=== PATIENT | male | born 1935 | race Caucasian/White ===

== ENCOUNTER 2016-06-06 07:35 | Inpatient (IN) | payer MEDICARE ==
[~2016-06-06] VITALS: Ht 175.3 cm; Wt 78.7 kg
[2016-06-06] VITALS (11 sets, daily range): BP systolic 111–161; BP diastolic 60–97; PULSE 61–89; RESP 18; TEMP 97.3–98.6; O2SAT 93–97
[2016-06-06] MEDS ORDERED: METF1000 PO (08:26)
[2016-06-06] MEDS ORDERED: FISH1000 PO (08:26)
[2016-06-06] MEDS ORDERED: PIOG15TA5 PO (08:26)
[2016-06-06] MEDS ORDERED: LISI40TA PO (08:26)
[2016-06-06] MEDS ORDERED: GLUC1CAP16 PO (08:26)
[2016-06-06] MEDS ORDERED: POTA595T PO (08:26)
[2016-06-06] MEDS ORDERED: PRAV40TA2 PO (08:26)
[2016-06-06] MEDS ORDERED: TAMS0.4C4 PO (08:26)
[2016-06-06] MEDS ORDERED: AMLO10TA2 PO (08:26)
[2016-06-06] MEDS ORDERED: VITA400C5 PO (08:26)
[2016-06-06] MEDS ORDERED: VITA100C6 CHEW (08:26)
[2016-06-06] MEDS ORDERED: VITATAB11 PO (08:26)
[2016-06-06] MEDS ORDERED: HEPARIN-NS/PF INJ 500 ML ONE (09:56)
[2016-06-06] MEDS ORDERED: MIDAZOLAM HCL 2 MG/2 ML VIAL ONE ×2 (09:57→10:44)
[2016-06-06] MEDS ORDERED: HEPARIN SODIUM - IV 10,000 UNITS/10 ML VIAL ONE (10:37)
[2016-06-06] MEDS ORDERED: PHENYLEPH/NS 1000 MCG/10 ML SYR ONE (10:41)
[2016-06-06] MEDS ORDERED: IOHEXOL 350 MG/ML 100 ML BTL (for Cath Lab) OTHER ONE (11:25)
[2016-06-06] MEDS ORDERED: METOCLOPRAMIDE HCL 10 MG/2 ML VIAL IV PRN (11:45)
[2016-06-06] MEDS ORDERED: ATROPINE SULFATE 1 MG/ML VIAL IV PRN (11:45)
[2016-06-06] MEDS ORDERED: oxyCODONE/ACETAMINOPHEN 10 MG/325 MG TAB PO PRN (11:45)
[2016-06-06] MEDS ORDERED: LIDOCAINE HCL 1% 50 ML VIAL INFIL PRN (11:45)
[2016-06-06] MEDS ORDERED: LORazepam 2 MG/ML VIAL IV PRN (11:45)
[2016-06-06] MEDS ORDERED: MORPHINE SULFATE 4 MG/ML INJ IV PUSH PRN (11:45)
[2016-06-06] MEDS ORDERED: oxyCODONE/ACETAMINOPHEN 5 MG/325 MG TAB PO PRN (11:45)
[2016-06-06] MEDS ORDERED: BACITRACIN OINT 0.9 GM PKT TOP ONE (11:45)
[2016-06-06] MEDS ORDERED: ONDANSETRON HCL 4 MG/2 ML VIAL IV PRN (11:45)
[2016-06-06] MEDS ORDERED: SODIUM CHLOR 0.9% 250 ML INJ 250 ML IV PRN (11:45)
--- NOTE | 2016-06-06 12:32 | MA ---
cc: CHRYSTAL LARSON DATE: 06/06/2016 INDICATION Abnormal stress test. PROCEDURE PERFORMED 1. Fluoroscopy with interpretation. 2. Coronary angiography. 3. Unsuccessful attempt at percutaneous intervention of the mid left anterior descending coronary artery. METHOD The risks, benefits and alternatives were discussed with the patient. The patient understood and consented to the procedure. The patient was brought into the catheterization lab and placed on the catheterization table. The right groin was prepped and draped in sterile fashion. The right groin was anesthetized with 2% lidocaine. The right common femoral artery is cannulated and a 5-Maltese, 11 cm sheath was placed without difficulty. CORONARY ANGIOGRAPHY The left coronary circulation was selectively engaged with a 5-Maltese JL4 catheter. The right coronary circulation was selectively engaged with a 5-Maltese JR4 catheter. Angiography findings were as follows: 1. The left main coronary has 40% eccentric calcific stenosis in the mid to distal segment. 2. The left anterior descending coronary artery is heavily calcified in the proximal segment and quite tortuous. There is a large diagonal branch with a 50% ostial stenosis. The mid left anterior descending coronary has a 99% heavily calcified and tortuous stenosis with KOKI-II flow distally, although the distal vessel has only minor luminal irregularities. 3. The left circumflex is occluded but does give rise to a high obtuse marginal branch prior to the occlusion. It is heavily calcified through its entire course. The obtuse marginal branch has minor luminal irregularities. 4. The right coronary artery is also moderately calcified but only has minor luminal irregularities. PERCUTANEOUS INTERVENTION The left coronary circulation was selectively engaged with a 6-Maltese AL-2 guide catheter. A 0.014, 300 cm Terumo Runthrough wire is then navigated to the midsegment at the bifurcation of a septal branch. There is a large eccentric calcific lesion just prior to the bifurcation of a large septal knitting teacher and there is a steep angulation just after which leads to the subtotal occlusion. We had difficulty trying to navigate the tortuosity and calcification and was unable to cross the SCARRER. We used a Terumo Runthrough wire in addition to a [employer] Fighter wire with a tapered tip. We also used an Venture catheter in attempts to redirect the wire due to the steep angulation. Due to risk of complication we elected not to proceed with any further aggressive attempts for intervention. Heparin was administered throughout the entire procedure to maintain appropriate anticoagulation. CONCLUSIONS 1. Heavily calcified subtotally occluded mid left anterior descending coronary artery with KOKI-II flow. 2. Moderate ostial diagonal branch disease. PLAN Unfortunately, the patient is going to need a surgical revascularization of the LAD and probably the diagonal territories. Will get a 2-D echocardiogram and consult cardiothoracic surgery. Due to the KOKI-II flow, will initiate a heparin drip. He will probably have to stay admitted until the surgery. MD ALICIA Ku/JOANNA /11:43 AM /12:14 PM MTDD
[2016-06-06] MEDS ORDERED: GLUCAGON 1 MG/ML VIAL OTHER PRN (13:30)
[2016-06-06] MEDS ORDERED: INSULIN REGULAR (IV INFUSION) 100 UNITS in SODIUM CHLORIDE 0.9% INJ 100 ML IV SCH (13:30)
[2016-06-06] MEDS ORDERED: CEFAZOLIN INJ 500 MG in SODIUM CHLORIDE 0.9% IRR BTL 500 ML IRRIGATION SCH (13:30)
[2016-06-06] MEDS ORDERED: CHLORHEXIDINE GLUCONATE 4% SOLN 120 ML BTL TOPICAL SCH (13:30)
[2016-06-06] MEDS ORDERED: PAPAVERINE INJ 60 MG, NITROGLYCERIN INJ 100 MCG, DILTIAZEM INJ 100 MG in SODIUM CHLORID... IRRIGATION SCH (13:30)
[2016-06-06] MEDS ORDERED: SODIUM CHLORIDE 0.9% FLUSH 5 ML FLUSH IV FLUSH PRN (13:30)
[2016-06-06] MEDS ORDERED: METOPROLOL TARTRATE 25 MG TAB PO SCH (13:30)
[2016-06-06] MEDS ORDERED: DEXTROSE 50% IN WATER 50 ML VIAL(D50) IV PUSH PRN (13:30)
[2016-06-06] MEDS ORDERED: ceFAZolin 2 GM PREMIX 50 ML IV SCH (13:30)
[2016-06-06] MEDS ORDERED: ACETAMINOPHEN 325 MG TAB PO PRN (13:45)
[2016-06-06] MEDS ORDERED: PILL SPLITTER OTHER PRN (13:45)
[2016-06-06] MEDS ORDERED: MAGNESIUM HYDROXIDE SUSP 30 ML CUP PO PRN (13:45)
[2016-06-06] MEDS: INSULIN NovoLIN REGULAR SUPPLEMENTAL SCALE SQ SCH ×2 (16:00→20:57)
--- NOTE | 2016-06-06 16:03 | RADRPT ---
EXAM DATE/TIME: 06/06/2016 14:13 [facility] COMPARISON: No previous studies available for comparison. INDICATIONS : Preop CABG. MEDICAL HISTORY : CAD. Hyperlipidemia. HTN. Diabetic. BPH. SURGICAL HISTORY : Appendectomy. ENCOUNTER: Initial ACUITY: 1 day PAIN SCORE: 0/10 LOCATION: Bilateral neck PEAK SYSTOLIC VELOCITIES (cm/sec): ICA/CCA RATIO: Right: 1.1 Left: 1.0 ICA: Right: 74 Left: 79 CCA: Right: 69 Left: 78 ECA: Right: 62 Left: 75 VERTEBRAL: Right: 38 antegrade Left: 59 antegrade Elevated flow velocities and ICA/CCA ratios have been found to correlate with increased degrees of vessel stenosis, calculated as percentage of diameter relative to a normal segment of distal ICA/CCA FINDINGS: RIGHT CAROTID: No significant stenosis is visualized. The waveforms are within normal limits. LEFT CAROTID: No significant stenosis is visualized. The waveforms are within normal limits. VERTEBRAL ARTERIES: Antegrade flow is seen in both vertebral arteries. MISCELLANEOUS: None. CONCLUSION: 1. There is [id number]-[id number] atherosclerotic disease in the carotid arteries bilaterally, predominant ly around the carotid bifurcations. No hemodynamically significant stenosis. Vertebral artery flow an tegrade bilaterally. Sonu Renteria MD on June 06, 2016 at 15:59 Board Certified Radiologist. This report was verified electronically.
--- NOTE | 2016-06-06 16:05 | RADRPT ---
EXAM DATE/TIME: 06/06/2016 14:32 [facility] COMPARISON: No previous studies available for comparison. INDICATIONS : Preop CABG. MEDICAL HISTORY : Hypertension. Hyperlipidemia. Diabetic. CAD. SURGICAL HISTORY : Appendectomy. ENCOUNTER: Initial ACUITY: 1 day PAIN SCORE: 0/10 LOCATION: Bilateral leg. TECHNIQUE: Venous ultrasound of the left and right leg was performed from the inguinal ligament to the proximal calf. Real-time, color Doppler and spectral tracing, compression and augmentation techniques were us ed. FINDINGS: RIGHT LEG: There is normal compressibility of the deep venous system from the inguinal region to the proximal ca lf. No echogenic clot is seen in the lumen of the common femoral, femoral, popliteal, and posterior tibial veins. There is a normal response of the venous system to proximal and distal augmentation an d respiration. LEFT LEG: There is normal compressibility of the deep venous system from the inguinal region to the popliteal r egion. There is occlusive thrombus in the left posterior tibial vein. CONCLUSION: Positive for occlusive thrombus within the left posterior tibial vein. Negative right lower extremity DVT study. Sonu Renteria MD on June 06, 2016 at 16:02 Board Certified Radiologist. This report was verified electronically.
--- NOTE | 2016-06-06 16:08 | RADRPT ---
EXAM DATE/TIME: 06/06/2016 14:47 [facility] COMPARISON: No previous studies available for comparison. INDICATIONS : Preop CABG. MEDICAL HISTORY : Diabetic. Hypertension. Hyperlipidemia. CAD. SURGICAL HISTORY : Appendectomy. ENCOUNTER: Initial ACUITY: 1 day PAIN SCORE: 0/10 LOCATION: Bilateral leg. GREATER SAPHENOUS VEIN THIGH: PROXIMAL: Right 3 mm Left 3 mm MID: Right 3 mm Left 2 mm DISTAL: Right 2 mm Left 3 mm CALF: PROXIMAL: Right 2 mm Left 2 mm MID: Right 2 mm Left 2 mm DISTAL: Right 2 mm Left 2 mm FINDINGS: The venous system of the lower extremities are patent by color Doppler imaging. Measurements of the leg veins (in mm) are listed above. CONCLUSION: Normal examination for a patient of this age. Sonu Renteria MD on June 06, 2016 at 16:04 Board Certified Radiologist. This report was verified electronically.
--- NOTE | 2016-06-06 16:42 | PD.CARD.PN ---
Assessment and Plan Assessment and Plan echo results from outpatient 06/04/16 Mildly dilated left ventricle. Wall thickness is measured at the upper limits of normal. The left ventricular systolic function is low normal with an estimated ejection fraction in the range of 50%. Cannot rule out regional wall abnormalities. Doppler parameters are consistent with impaired left ventricular relaxtion (grade 1 diastolic dysfunction). The left atrial size is mildly dilated. Mitral annular calcification is present. Latmq-ex-qzlv mitral valve regurgitation. Diffuse calcification of the aortic valve. Trace aortic valve regurgitation. There is mild tricuspid valve regurgitation. The estimated pulmonary arterial pressure is 37.5 mmHg. Normal estimated pulmonary pressures. Jn Griffith MD Jun 06, 2016 16:42
[2016-06-06 17:25] LABS: HEMATOCRIT 35.3 % (39.0-51.0); MEAN CORPUSCULAR HEMOGLOBIN 29.3 PG (27.0-34.0); MEAN CORPUSCULAR HGB CONC 33.7 % (32.0-36.0); PLATELET COUNT 219 TH/MM3 (150-450); RED BLOOD COUNT 4.06 MIL/MM3 (4.50-5.90); REVIEW FLAG FINAL; WHITE BLOOD COUNT 4.5 TH/MM3 (4.0-11.0)
[2016-06-06 17:35] LABS: APTT (PATIENT) 27.3 SEC (24.3-30.1); PROTHROMBIN TIME - PATIENT 11.1 SEC (9.8-11.6)
[2016-06-06] MEDS: HEPARIN-D5W INJ 250 ML IV SCH (18:25)
[2016-06-06] MEDS: METOPROLOL TARTRATE 25 MG TAB PO SCH (20:56)
[2016-06-06] MEDS: DOCUSATE SODIUM 100 MG CAP PO SCH (20:56)
[2016-06-06] MEDS: TAMSULOSIN HCL 0.4 MG CAP PO SCH (20:57)
[2016-06-06] MEDS: SODIUM CHLORIDE 0.9% FLUSH 5 ML FLUSH IV FLUSH SCH (20:57)
--- NOTE | 2016-06-06 22:31 | EKG ---
Date Performed: 06/06/2016 Time Performed: 08:21:30 PTAGE: 81 years EKG: Sinus rhythm T wave changes, possible ischemia Poor R wave Progression Abnormal ECG NO PREVIOUS TRACING DOCTOR: Myron Baeza Interpretating Date/Time 06/06/2016 22:30:23
[2016-06-06 22:33] LABS: BLOOD, URINE NEG (NEG); COMMENT (UR) CULT NOT INDICATED; CULTURE IF INDICATED CULT NOT INDICATED; GLUCOSE,URINE NEG (NEG); KETONE, URINE NEG (NEG); MUCUS URINE FEW /lpf (OCC); NITRITE,URINE NEG (NEG); URINE COLOR LIGHT-YELLOW (YELLW/STRAW)
[2016-06-07] VITALS (27 sets, daily range): BP systolic 114–138; BP diastolic 66–75; PULSE 50–80; RESP 18–20; TEMP 97.9–98.5; O2SAT 94–100
[2016-06-07 01:05] LABS: APTT (PATIENT) 30.4 SEC (24.3-30.1)
[2016-06-07 05:30] LABS: AUTOMATED NEUTROPHIL # 3.8 TH/MM3 (1.8-7.7); BASOPHIL % 0.6 % (0.0-2.0); EOSINOPHIL # 0.1 TH/MM3 (0-0.4); EOSINOPHIL % 2.4 % (0.0-4.0); HEMATOCRIT 33.9 % (39.0-51.0); HEMO FLAGS DIFF FINAL; MEAN CELL VOLUME 87.5 FL (80.0-100.0); MEAN CORPUSCULAR HGB CONC 34.2 % (32.0-36.0); MONO % 11.6 % (0.0-8.0); NEUT % 67.4 % (16.0-70.0); PLATELET COUNT 218 TH/MM3 (150-450); RED BLOOD COUNT 3.87 MIL/MM3 (4.50-5.90); RED CELL DISTRIBUTION WIDTH 14.2 % (11.6-17.2); WHITE BLOOD COUNT 5.7 TH/MM3 (4.0-11.0)
[2016-06-07 05:52] LABS: ALKALINE PHOSPHATASE 72 U/L (45-117); ALT (GPT) 20 U/L (12-78); ANION GAP 7 MEQ/L (5-15); AST (GOT) 11 U/L (15-37); BICARBONATE 28.9 MEQ/L (21.0-32.0); BLOOD UREA NITROGEN 13 MG/DL (7-18); CHLORIDE 109 MEQ/L (98-107); GLOMERULAR FILTRATION RATE 106 ML/MIN (>89); HDL CHOLESTEROL 66.1 MG/DL (40.0-60.0); LDL CHOLESTEROL 75 MG/DL (0-99); POTASSIUM 3.6 MEQ/L (3.5-5.1); SODIUM (NA) 145 MEQ/L (136-145); TOTAL BILIRUBIN ADULT 0.5 MG/DL (0.2-1.0)
[2016-06-07 05:55] LABS: CREATINE KINASE 75 U/L (39-308)
[2016-06-07] MEDS: INSULIN NovoLIN REGULAR SUPPLEMENTAL SCALE SQ SCH ×4 (06:27→20:17)
[2016-06-07 08:42] LABS: APTT (PATIENT) 43.4 SEC (24.3-30.1)
--- NOTE | 2016-06-07 08:51 | PD.CARD.PN ---
Subjective Subjective Remarks The chart was reviewed. The patient denies chest pain, shortness of breath, palpitations or GI symptoms. Telemetry reveals sinus rhythm/sinus bradycardia. Objective Medications Reviewed Vital Signs / I&O Vital Signs Date Time Temp Pulse Resp B/P Pulse Ox O2 Delivery O2 Flow Rate FiO2 06/07/16 07:53 98.5 65 18 138/75 95 06/07/16 07:53 Room Air 06/07/16 06:00 61 06/07/16 05:00 63 06/07/16 05:00 60 06/07/16 04:00 98.4 61 18 128/74 96 06/07/16 04:00 Room Air 06/07/16 04:00 61 06/07/16 03:00 65 06/07/16 02:00 63 06/07/16 01:00 62 06/07/16 00:00 71 06/06/16 23:51 98.2 71 18 111/60 95 06/06/16 23:51 Room Air 06/06/16 23:00 81 06/06/16 22:00 81 06/06/16 21:00 73 06/06/16 20:00 98.0 74 18 156/97 97 06/06/16 20:00 Room Air 06/06/16 20:00 74 06/06/16 18:00 73 06/06/16 17:00 89 06/06/16 16:00 65 06/06/16 15:00 97.3 64 18 125/74 06/06/16 15:00 63 06/06/16 14:15 61 06/06/16 11:30 96 Room Air I/O 06/06/16 06/06/16 06/06/16 06/07/16 06/07/16 06/07/16 07:00 15:00 23:00 07:00 15:00 23:00 Intake Total 210 ml 350 ml Output Total 400 ml 800 ml Balance -190 ml -450 ml Intake Oral 210 ml 240 ml IV Total 110 ml Output Urine Total 400 ml 800 ml # Bowel Movements 1 Physical Exam GENERAL: Well-nourished, well-developed patient in no apparent distress. SKIN: Warm and dry. NECK: JVD normal - less than or equal to 5 cm H20. CARDIOVASCULAR: Regular rate and rhythm without gallops, or rubs. 2/6 early peaking systolic ejection murmur at the base and apex. RESPIRATORY: Normal breath sounds - equal bilaterally. No accessory muscle use. No wheezes, rales or rubs. PERIPHERY: No cyanosis, or edema. Right groin dry and without hematoma. Laboratory Laboratory Tests Test 06/06/16 06/06/16 06/06/16 06/07/16 17:13 18:45 22:01 00:36 White Blood Count 4.5 TH/MM3 Red Blood Count 4.06 MIL/MM3 Hemoglobin 11.9 GM/DL Hematocrit 35.3 % Mean Corpuscular Volume 87.0 FL Mean Corpuscular Hemoglobin 29.3 PG Mean Corpuscular Hemoglobin 33.7 % Concent Red Cell Distribution Width 14.0 % Platelet Count 219 TH/MM3 Mean Platelet Volume 7.3 FL Prothrombin Time 11.1 SEC Prothromb Time International 1.0 RATIO Ratio Activated Partial 27.3 SEC 30.4 SEC Thromboplast Time Nasal Screen MRSA (PCR) NEGATIVE Urine Color LIGHT-YELLOW Urine Turbidity CLEAR Urine pH 7.0 Urine Specific [place] 1.014 Urine Protein NEG mg/dL Urine Glucose (UA) NEG mg/dL Urine Ketones NEG mg/dL Urine Occult Blood NEG Urine Nitrite NEG Urine Bilirubin NEG Urine Urobilinogen LESS THAN 2.0 MG/DL Urine Leukocyte Esterase NEG Urine Mucus FEW /lpf Microscopic Urinalysis Comment CULT NOT INDICATED Test 06/07/16 05:02 White Blood Count 5.7 TH/MM3 Red Blood Count 3.87 MIL/MM3 Hemoglobin 11.6 GM/DL Hematocrit 33.9 % Mean Corpuscular Volume 87.5 FL Mean Corpuscular Hemoglobin 30.0 PG Mean Corpuscular Hemoglobin 34.2 % Concent Red Cell Distribution Width 14.2 % Platelet Count 218 TH/MM3 Mean Platelet Volume 7.5 FL Neutrophils (%) (Auto) 67.4 % Lymphocytes (%) (Auto) 18.0 % Monocytes (%) (Auto) 11.6 % Eosinophils (%) (Auto) 2.4 % Basophils (%) (Auto) 0.6 % Neutrophils # (Auto) 3.8 TH/MM3 Lymphocytes # (Auto) 1.0 TH/MM3 Monocytes # (Auto) 0.7 TH/MM3 Eosinophils # (Auto) 0.1 TH/MM3 Basophils # (Auto) 0.0 TH/MM3 CBC Comment DIFF FINAL Differential Comment Sodium Level 145 MEQ/L Potassium Level 3.6 MEQ/L Chloride Level 109 MEQ/L Carbon Dioxide Level 28.9 MEQ/L Anion Gap 7 MEQ/L Blood Urea Nitrogen 13 MG/DL Creatinine 0.71 MG/DL Estimat Glomerular Filtration 106 ML/MIN Rate Random Glucose 92 MG/DL Calcium Level 8.2 MG/DL Total Bilirubin 0.5 MG/DL Aspartate Amino Transf 11 U/L (AST/SGOT) Alanine Aminotransferase 20 U/L (ALT/SGPT) Alkaline Phosphatase 72 U/L Total Creatine Kinase 75 U/L Total Protein 6.0 GM/DL Albumin 3.3 GM/DL Triglycerides Level 50 MG/DL Cholesterol Level 151 MG/DL LDL Cholesterol 75 MG/DL HDL Cholesterol 66.1 MG/DL Cholesterol/HDL Ratio 2.28 RATIO Imaging Last 48 hours Impressions Lower Extremity Ultrasound 06/06/16 0000 Signed Impressions: Service Date/Time: Monday, June 06, 2016 14:47 - CONCLUSION: Normal examination for a patient of this age. Sonu Renteria MD Lower Extremity Ultrasound 06/06/16 0000 Signed Impressions: Service Date/Time: Monday, June 06, 2016 14:32 - CONCLUSION: Positive for occlusive thrombus within the left posterior tibial vein. Negative right lower extremity DVT study. Sonu Renteria MD Carotid Artery Ultrasound 06/06/16 0000 Signed Impressions: Service Date/Time: Monday, June 06, 2016 14:13 - CONCLUSION: 1. There is waph-th-vlbsodce atherosclerotic disease in the carotid arteries bilaterally, predominantly around the carotid bifurcations. No hemodynamically significant stenosis. Vertebral artery flow antegrade bilaterally. Sonu Renteria MD Assessment and Plan Assessment and Plan Problems: Coronary artery disease with unsuccessful PCI Hypertension Diabetes Hyperlipidemia Occlusive thrombus and distal vein Recommendations: Continue present medical regimen. I have spoken to Dr. Giraldo from cardiovascular surgery. He does not think anticoagulation is indicated. The surgeons will assume further management with help from the hospitalists if necessary. We will be available if needed. Red Steen MD Jun 07, 2016 08:51
[2016-06-07] MEDS ORDERED: LISINOPRIL 20 MG TAB PO SCH (09:00)
[2016-06-07] MEDS ORDERED: CHONDROITIN PO SCH (09:00)
[2016-06-07] MEDS ORDERED: GLUCOSAMINE PO SCH (09:00)
[2016-06-07] MEDS ORDERED: POTASSIUM GLUCONATE PO SCH (09:00)
[2016-06-07] MEDS ORDERED: NON-FORMULARY DRUG (Omega-3 Fatty Acids (Fish Oil) 1,000 MG) PO SCH (09:00)
[2016-06-07] MEDS ORDERED: ASCORBIC ACID 100 MG CHEW SCH (09:00)
[2016-06-07] MEDS ORDERED: [UNRECOGNIZED DRUG - OTHER] PO SCH (09:00)
[2016-06-07] MEDS: SODIUM CHLORIDE 0.9% FLUSH 5 ML FLUSH IV FLUSH SCH ×2 (09:00→20:07)
[2016-06-07] MEDS: ASPIRIN 81 MG CHEW TAB PO SCH (09:40)
[2016-06-07] MEDS: PRAVASTATIN SOD 40 MG TAB PO SCH (09:40)
[2016-06-07] MEDS: PIOGLITAZONE HCL 15 MG TAB PO SCH (09:40)
[2016-06-07] MEDS: PANTOPRAZOLE SOD 40 MG DELAYED RELEASE TAB PO SCH (09:41)
[2016-06-07] MEDS: METOPROLOL TARTRATE 25 MG TAB PO SCH ×2 (09:41→20:07)
[2016-06-07] MEDS: DOCUSATE SODIUM 100 MG CAP PO SCH ×2 (09:41→20:07)
--- NOTE | 2016-06-07 12:23 | PD.CAR.PN ---
CVT Progress Note Subjective/Hospital Course: Stable. Denies chest pain Objective: Vital Signs Date Time Temp Pulse Resp B/P Pulse Ox O2 Delivery O2 Flow Rate FiO2 06/07/16 11:23 98.4 61 18 114/66 94 06/07/16 07:53 98.5 65 18 138/75 95 06/07/16 07:53 Room Air 06/07/16 06:00 61 06/07/16 05:00 63 06/07/16 05:00 60 06/07/16 04:00 98.4 61 18 128/74 96 06/07/16 04:00 Room Air 06/07/16 04:00 61 06/07/16 03:00 65 06/07/16 02:00 63 06/07/16 01:00 62 06/07/16 00:00 71 06/06/16 23:51 98.2 71 18 111/60 95 06/06/16 23:51 Room Air 06/06/16 23:00 81 06/06/16 22:00 81 06/06/16 21:00 73 06/06/16 20:00 98.0 74 18 156/97 97 06/06/16 20:00 Room Air 06/06/16 20:00 74 06/06/16 18:00 73 06/06/16 17:00 89 06/06/16 16:00 65 06/06/16 15:00 97.3 64 18 125/74 06/06/16 15:00 63 06/06/16 14:15 61 Labs: Laboratory Tests Test 06/07/16 06/07/16 06/07/16 00:36 05:02 08:10 Activated Partial 30.4 SEC 43.4 SEC Thromboplast Time (24.3-30.1) (24.3-30.1) White Blood Count 5.7 TH/MM3 (4.0-11.0) Red Blood Count 3.87 MIL/MM3 (4.50-5.90) Hemoglobin 11.6 GM/DL (13.0-17.0) Hematocrit 33.9 % (39.0-51.0) Mean Corpuscular Volume 87.5 FL (80.0-100.0) Mean Corpuscular Hemoglobin 30.0 PG (27.0-34.0) Mean Corpuscular Hemoglobin 34.2 % Concent (32.0-36.0) Red Cell Distribution Width 14.2 % (11.6-17.2) Platelet Count 218 TH/MM3 (150-450) Mean Platelet Volume 7.5 FL (7.0-11.0) Neutrophils (%) (Auto) 67.4 % (16.0-70.0) Lymphocytes (%) (Auto) 18.0 % (9.0-44.0) Monocytes (%) (Auto) 11.6 % (0.0-8.0) Eosinophils (%) (Auto) 2.4 % (0.0-4.0) Basophils (%) (Auto) 0.6 % (0.0-2.0) Neutrophils # (Auto) 3.8 TH/MM3 (1.8-7.7) Lymphocytes # (Auto) 1.0 TH/MM3 (1.0-4.8) Monocytes # (Auto) 0.7 TH/MM3 (0-0.9) Eosinophils # (Auto) 0.1 TH/MM3 (0-0.4) Basophils # (Auto) 0.0 TH/MM3 (0-0.2) CBC Comment DIFF FINAL Differential Comment Sodium Level 145 MEQ/L (136-145) Potassium Level 3.6 MEQ/L (3.5-5.1) Chloride Level 109 MEQ/L (98-107) Carbon Dioxide Level 28.9 MEQ/L (21.0-32.0) Anion Gap 7 MEQ/L (5-15) Blood Urea Nitrogen 13 MG/DL (7-18) Creatinine 0.71 MG/DL (0.60-1.30) Estimat Glomerular Filtration 106 ML/MIN Rate (>89) Random Glucose 92 MG/DL (74-106) Calcium Level 8.2 MG/DL (8.5-10.1) Total Bilirubin 0.5 MG/DL (0.2-1.0) Aspartate Amino Transf 11 U/L (15-37) (AST/SGOT) Alanine Aminotransferase 20 U/L (12-78) (ALT/SGPT) Alkaline Phosphatase 72 U/L (45-117) Total Creatine Kinase 75 U/L (39-308) Total Protein 6.0 GM/DL (6.4-8.2) Albumin 3.3 GM/DL (3.4-5.0) Triglycerides Level 50 MG/DL (42-150) Cholesterol Level 151 MG/DL (120-200) LDL Cholesterol 75 MG/DL (0-99) HDL Cholesterol 66.1 MG/DL (40.0-60.0) Cholesterol/HDL Ratio 2.28 RATIO Result Diagram: 06/07/16 0502 06/07/16 050 Imaging: Last Impressions Lower Extremity Ultrasound 06/06/16 0000 Signed Impressions: Service Date/Time: Monday, June 06, 2016 14:47 - CONCLUSION: Normal examination for a patient of this age. Sonu Renteria MD Carotid Artery Ultrasound 06/06/16 0000 Signed Impressions: Service Date/Time: Monday, June 06, 2016 14:13 - CONCLUSION: 1. There is hjwq-vz-djkvqzxb atherosclerotic disease in the carotid arteries bilaterally, predominantly around the carotid bifurcations. No hemodynamically significant stenosis. Vertebral artery flow antegrade bilaterally. Sonu Renteria MD Cardiovascular: RRR Telemetry: NSR Pulmonary: CTA GI/: NABD, NT Plan: Preop CABG for Thursday. Sita Giraldo MD Jun 07, 2016 12:23
[2016-06-07] MEDS: HEPARIN-D5W INJ 250 ML IV SCH (13:05)
--- NOTE | 2016-06-07 14:20 | EKG ---
Date Performed: 06/07/2016 Time Performed: 05:30:02 PTAGE: 81 years EKG: Sinus rhythm Prolonged QT interval Leftward axis Possible septal infarct - age undetermined T wave inversions ant erolaterally, possible ischemia Abnormal ECG PREVIOUS TRACING : 06/06/2016 08.21 T wave inversions appear more prominent, Clinical correlati on is recommended DOCTOR: Myron Baeza Interpretating Date/Time 06/07/2016 14:19:09
[2016-06-07] MEDS: TAMSULOSIN HCL 0.4 MG CAP PO SCH (20:07)
--- NOTE | 2016-06-07 22:05 | RADRPT ---
EXAM DATE/TIME: 06/07/2016 21:49 [facility] COMPARISON: CT THORAX W/O CONTRAST, June 07, 2016, 21:45. INDICATIONS : Evaluate for Pneumonia, Pneumothorax, or Communicable Disease. Pre-Op CABG. MEDICAL HISTORY : Diabetic. Hypertension. Hyperlipidemia. CAD. SURGICAL HISTORY : Appendectomy. ENCOUNTER: Initial ACUITY: 1 day PAIN SCORE: 0/10 LOCATION: Bilateral chest FINDINGS: Atherosclerotic changes of the aorta calcification in the 9 and unwinding is appreciated with left ve ntricular cardiomegaly compensated. Lung chaudhary are clear with no acute cardiopulmonary process CONCLUSION: No acute disease. Atherosclerotic cardiovascular disease with compensated left ventricular cardiomeg rozina Amaya MD on June 07, 2016 at 22:01 Board Certified Radiologist. This report was verified electronically.
--- NOTE | 2016-06-07 22:09 | RADRPT ---
EXAM DATE/TIME: 06/07/2016 21:45 [facility] COMPARISON: No previous studies available for comparison. INDICATIONS : Pre-op CABG. Evaluate for aortic calcifications. RADIATION DOSE: 5.14 CTDIvol (mGy) MEDICAL HISTORY : Hypertension. Diabetes mellitus type 2. Coronary artery disease. SURGICAL HISTORY : Appendectomy. ENCOUNTER: Initial ACUITY: 1 day PAIN SCALE: 0/10 LOCATION: chest TECHNIQUE: Volumetric scanning of the chest was performed. Using automated exposure control and adjustment of the mA and/or kV according to patient size, radiation dose was kept as low as reasonab ly achievable to obtain optimal diagnostic quality images. FINDINGS: LUNGS: There is no consolidation or pneumothorax. No concerning pulmonary nodule is visualized. PLEURAE: There is no pleural thickening or pleural effusion. MEDIASTINUM: There is left ventricular cardiomegaly. There are flecks of calcification in the aor ta and origin of the great vessels without evidence of aneurysm. Extensive calcifications noted in th e coronary arteries inclusive of the left main, anterior descending, and circumflex AXILLAE: Within normal limits. No lymphadenopathy. MUSCULOSKELETAL: Within normal limits for patient age. MISCELLANEOUS: The visualized upper abdominal organs demonstrate no acute abnormality. CONCLUSION: No acute cardiopulmonary process. Atherosclerotic cardiovascular disease inclusive of compensat ed cardiomegaly and extensive calcifications in the left coronary artery occlusive vein, anterior josef cending, and circumflex. Jensen Amaya MD on June 07, 2016 at 22:05 Board Certified Radiologist. This report was verified electronically.
[2016-06-08] VITALS (25 sets, daily range): BP systolic 96–132; BP diastolic 62–86; PULSE 54–88; RESP 16–18; TEMP 97.9–98.7; O2SAT 94–98
[2016-06-08 00:23] LABS: APTT (PATIENT) 55.9 SEC (24.3-30.1)
[2016-06-08] MEDS: INSULIN NovoLIN REGULAR SUPPLEMENTAL SCALE SQ SCH ×4 (05:47→20:57)
[2016-06-08] MEDS: DOCUSATE SODIUM 100 MG CAP PO SCH ×2 (08:36→21:06)
[2016-06-08] MEDS: PANTOPRAZOLE SOD 40 MG DELAYED RELEASE TAB PO SCH (08:36)
[2016-06-08] MEDS: PIOGLITAZONE HCL 15 MG TAB PO SCH (08:36)
[2016-06-08] MEDS: PRAVASTATIN SOD 40 MG TAB PO SCH (08:36)
[2016-06-08] MEDS: METOPROLOL TARTRATE 25 MG TAB PO SCH ×2 (08:36→21:06)
[2016-06-08] MEDS: ASPIRIN 81 MG CHEW TAB PO SCH (08:36)
[2016-06-08] MEDS: SODIUM CHLORIDE 0.9% FLUSH 5 ML FLUSH IV FLUSH SCH ×2 (08:37→21:00)
[2016-06-08 10:57] LABS: APTT (PATIENT) 48.3 SEC (24.3-30.1)
[2016-06-08 14:13] LABS: HEMOGLOBIN A1a 1.1 %; HEMOGLOBIN A1b 1.7 %; HEMOGLOBIN LA1C 1.3 %; HEMOGLOBIN P3 3.5 %
[2016-06-08] MEDS: TAMSULOSIN HCL 0.4 MG CAP PO SCH (21:06)
[2016-06-09] VITALS (25 sets, daily range): BP systolic 105–141; BP diastolic 59–79; PULSE 54–81; RESP 16–20; TEMP 98–98.4; O2SAT 93–97
[2016-06-09] MEDS: INSULIN NovoLIN REGULAR SUPPLEMENTAL SCALE SQ SCH ×4 (05:19→21:00)
[2016-06-09 05:44] LABS: HEMATOCRIT 33.5 % (39.0-51.0); MEAN CELL VOLUME 86.3 FL (80.0-100.0); MEAN CORPUSCULAR HEMOGLOBIN 29.5 PG (27.0-34.0); MEAN CORPUSCULAR HGB CONC 34.2 % (32.0-36.0); PLATELET COUNT 205 TH/MM3 (150-450); RED BLOOD COUNT 3.88 MIL/MM3 (4.50-5.90); RED CELL DISTRIBUTION WIDTH 14.1 % (11.6-17.2); REVIEW FLAG FINAL; WHITE BLOOD COUNT 4.3 TH/MM3 (4.0-11.0)
[2016-06-09 06:04] LABS: APTT (PATIENT) 98.6 SEC (24.3-30.1)
--- NOTE | 2016-06-09 08:43 | MH ---
cc: ZINA TELLEZ MD DATE OF ADMISSION: 06/06/2016 DATE OF : 1935 HISTORY: a 81-year-old male apparently was requiring an EKG for full clearance for left hip replacement scheduled for June 09, 2016. Upon review of the EKG Dr. Griffith notice an EKG changes that was different from his prior Electrocardiogram his T-waves were inverted, In the anterior lateral leads. He underwent heart catheterization today which showed heavily calcified subtotally occluded mid LAD with KOKI 2 flow body, of moderate ostial diagonal branch disease. EF is pending as per 2-D echo. The patient has been fairly asymptomatic. No chest pain or shortness of breath. His risk factors include age, hypertension, hyperlipidemia. We were consulted to evaluate for coronary artery bypass grafting. PAST MEDICAL HISTORY: The patient's past medical history of hypertension. hyperlipidemia. Diabetes mellitus degenerative disk disease gastroesophageal reflux disease chronic low back pain. He has had history of ureteral stenosis. PAST SURGICAL HISTORY: Surgeries include appendectomy colonoscopy skin cancer removal. He has had some lower back nerve blocks ALLERGIES NO KNOWN DRUG ALLERGIES MEDICATIONS 1. Diclofenac 50 mg one b.i.d. 2. Fish oil. 1. Glucosamine chondroitin. 2. Potassium 3. Pravachol 40 p.o. daily. 4. Erythromycin eye drops. 5. Amlodipine 10 p.o. daily. 6. Lisinopril 40 p.o. daily. 7. Actos 15 p.o. daily. 8. Metformin 1000 p.o. b.i.d. which has been on hold. FAMILY HISTORY Brother had an myocardial infarction in his 70s. Mother 93 of old age. SOCIAL HISTORY The patient smoked for 20 years quit 43 years ago. No alcohol. , three children. Retired from [employer]. REVIEW OF SYSTEMS IN GENERAL: No night sweats, fever, heat and cold intolerance. SKIN: No psoriasis, itching or hives. HEAD, EYES, EARS, NOSE, AND THROAT: No blurred vision, hearing loss. RESPIRATORY: No cough, shortness of breath. CARDIOVASCULAR SYSTEM: No chest pain or paroxysmal nocturnal dyspnea. GASTROINTESTINAL: No diarrhea, vomiting. GENITOURINARY: No burning frequency, urgency. CENTRAL NERVOUS SYSTEM: No history of TIA, CVA, seizure disorder ENDOCRINOLOGY: positive for diabetes mellitus. PHYSICAL EXAMINATION: VITAL SIGNS: Blood pressure 125/74, heart rate 60, afebrile. IN GENERAL: Patient is awake, alert, no acute distress head is normocephalic, atraumatic. Pupils equal, reactive. Oral mucosa pink, moist. NECK: Supple. No JVD. HEART: The heart sounds S1-S2 regular rate and rhythm. No rubs, murmurs, gallops. LUNGS: Clear to auscultation. No wheezes, rales or rhonchi. ABDOMEN: Soft, nontender. No masses or organomegaly. EXTREMITIES: No cyanosis, clubbing or edema. LABORATORY FINDINGS: Recent lab work shows hemoglobin of 12.5, hematocrit 38, white cell count 5.3, platelet count of 224, sodium 145, potassium 3.9, BUN 16, creatinine 0.69. EKG as above. IMPRESSION This is an 81-year-old male with recent abnormal EKG underwent cardiac cath with two-vessel disease. He had 100% occlusion of the circumflex evaluation for coronary artery bypass grafting. Procedures, alternatives and risks have been discussed by Dr. Zina Tellez. Alternatives and risks have been discussed with the patient. He is agreeable to proceed. PLAN: The plan will be for ThursdayJune 10. Further testing pending. Please note he did have a an ultrasound of the lower extremity which did show positive for occlusive thrombus in the left posterior tibial vein negative for DVT on the right he has however, on heparin and he will need to be on anticoagulation post surgical period after his chest tubes have been discontinued after his surgery. Further planning as per Dr. Zina Tellez. STS data will be discussed with the patient that the new medication. DICTATED BY: SIMEON Dial Zina Jones /4:40 PM /8:43 AM
[2016-06-09] MEDS: SODIUM CHLORIDE 0.9% FLUSH 5 ML FLUSH IV FLUSH SCH ×2 (09:00→21:00)
[2016-06-09] MEDS: PRAVASTATIN SOD 40 MG TAB PO SCH (09:04)
[2016-06-09] MEDS: PIOGLITAZONE HCL 15 MG TAB PO SCH (09:04)
[2016-06-09] MEDS: DOCUSATE SODIUM 100 MG CAP PO SCH ×2 (09:04→21:30)
[2016-06-09] MEDS: PANTOPRAZOLE SOD 40 MG DELAYED RELEASE TAB PO SCH (09:04)
[2016-06-09] MEDS: ASPIRIN 81 MG CHEW TAB PO SCH (09:05)
[2016-06-09] MEDS: METOPROLOL TARTRATE 25 MG TAB PO SCH ×2 (09:05→21:30)
[2016-06-09 10:04] LABS: APTT (PATIENT) 63.9 SEC (24.3-30.1)
[2016-06-09] MEDS: HEPARIN-D5W INJ 250 ML IV SCH (12:12)
--- NOTE | 2016-06-09 14:27 | PD.CAR.PN ---
CVT Progress Note Subjective/Hospital Course: 81/ male undergoing ECG for clearance for Left Hip Surgery, found to have abnormal ECG, followed by Heart Cath by Dr Griffith + multi vessel disease, 40% Left main, 30% prox LAD, mid/distal LAD 99%, diagonal 90%, CX 100% EF 45% mild MR PMH: Left Hip pain, CAD, ureteral stenosis, DDD, GERD, chronic back pain , DM US Lower ext revealed + DVT left post tibial vein 06/09 doing well, scheduled for surgery in am will need anticoagulation after surgery for DVT Objective: GENERAL: SKIN: Warm and dry. HEAD: Normocephalic. EYES: No scleral icterus. No injection or drainage. NECK: Supple, trachea midline. No JVD or lymphadenopathy. CARDIOVASCULAR: Regular rate and rhythm without murmurs, gallops, or rubs. RESPIRATORY: Breath sounds equal bilaterally. No accessory muscle use. GASTROINTESTINAL: Abdomen soft, non-tender, nondistended. MUSCULOSKELETAL: No cyanosis, or edema. BACK: Nontender without obvious deformity. No CVA tenderness. Vital Signs Date Time Temp Pulse Resp B/P Pulse Ox O2 Delivery O2 Flow Rate FiO2 06/09/16 14:00 73 06/09/16 13:00 62 06/09/16 12:00 62 06/09/16 11:00 60 06/09/16 11:00 98.0 62 18 138/79 93 06/09/16 10:00 75 06/09/16 09:00 72 06/09/16 09:00 63 06/09/16 08:00 76 06/09/16 07:00 95 Room Air 06/09/16 07:00 72 06/09/16 07:00 98.4 60 16 105/59 95 06/09/16 06:00 56 06/09/16 05:00 54 06/09/16 04:05 57 18 127/67 93 06/09/16 04:00 73 06/09/16 03:00 58 06/09/16 02:00 54 06/09/16 01:00 57 06/09/16 00:00 56 06/08/16 23:30 65 18 118/68 94 06/08/16 23:02 Room Air 06/08/16 23:00 57 06/08/16 22:00 64 06/08/16 21:00 70 06/08/16 20:00 79 06/08/16 19:00 98.3 63 18 117/71 96 06/08/16 19:00 64 06/08/16 18:00 78 06/08/16 17:00 68 06/08/16 16:00 98.1 65 18 105/69 94 06/08/16 16:00 68 06/08/16 15:00 69 Labs: Laboratory Tests Test 06/09/16 06/09/16 05:33 09:37 White Blood Count 4.3 TH/MM3 (4.0-11.0) Red Blood Count 3.88 MIL/MM3 (4.50-5.90) Hemoglobin 11.4 GM/DL (13.0-17.0) Hematocrit 33.5 % (39.0-51.0) Mean Corpuscular Volume 86.3 FL (80.0-100.0) Mean Corpuscular Hemoglobin 29.5 PG (27.0-34.0) Mean Corpuscular Hemoglobin 34.2 % Concent (32.0-36.0) Red Cell Distribution Width 14.1 % (11.6-17.2) Platelet Count 205 TH/MM3 (150-450) Mean Platelet Volume 7.1 FL (7.0-11.0) Activated Partial 98.6 SEC 63.9 SEC Thromboplast Time (24.3-30.1) (24.3-30.1) Result Diagram: 06/09/16 0533 06/07/16 0502 Telemetry: NSR (1) Coronary artery disease Plan: on ASA, statin , BB (2) Hyperlipemia Plan: statin (3) Hypertension Plan: stable (4) Chronic back pain Plan: pain control (5) DVT (deep venous thrombosis) Plan: will need anticoagulation after surgery , and when chest tubes out Nara Ruiz Jun 09, 2016 14:27
--- NOTE | 2016-06-09 14:41 | PD.CARD.PN ---
Subjective Subjective Remarks sitting up in chair doing well Objective Vital Signs / I&O Vital Signs Date Time Temp Pulse Resp B/P Pulse Ox O2 Delivery O2 Flow Rate FiO2 06/09/16 14:00 73 06/09/16 13:00 62 06/09/16 12:00 62 06/09/16 11:00 60 06/09/16 11:00 98.0 62 18 138/79 93 06/09/16 10:00 75 06/09/16 09:00 72 06/09/16 09:00 63 06/09/16 08:00 76 06/09/16 07:00 95 Room Air 06/09/16 07:00 72 06/09/16 07:00 98.4 60 16 105/59 95 06/09/16 06:00 56 06/09/16 05:00 54 06/09/16 04:05 57 18 127/67 93 06/09/16 04:00 73 06/09/16 03:00 58 06/09/16 02:00 54 06/09/16 01:00 57 06/09/16 00:00 56 06/08/16 23:30 65 18 118/68 94 06/08/16 23:02 Room Air 06/08/16 23:00 57 06/08/16 22:00 64 06/08/16 21:00 70 06/08/16 20:00 79 06/08/16 19:00 98.3 63 18 117/71 96 06/08/16 19:00 64 06/08/16 18:00 78 06/08/16 17:00 68 06/08/16 16:00 98.1 65 18 105/69 94 06/08/16 16:00 68 06/08/16 15:00 69 I/O 06/08/16 06/08/16 06/08/16 06/09/16 06/09/16 06/09/16 07:00 15:00 23:00 07:00 15:00 23:00 Intake Total 360 ml 680 ml 544 ml Output Total 950 ml 700 ml Balance -590 ml 680 ml -156 ml Intake Oral 240 ml 680 ml 400 ml IV Total 120 ml 144 ml Output Urine Total 950 ml 700 ml # Voids 3 # Bowel Movements 0 1 Physical Exam GENERAL: SKIN: Warm and dry. HEAD: Normocephalic. EYES: No scleral icterus. No injection or drainage. NECK: Supple, trachea midline. No JVD or lymphadenopathy. CARDIOVASCULAR: Regular rate and rhythm 2/6 SM RESPIRATORY: Breath sounds equal bilaterally. No accessory muscle use. GASTROINTESTINAL: Abdomen soft, non-tender, nondistended. MUSCULOSKELETAL: No cyanosis, or edema. BACK: Nontender without obvious deformity. No CVA tenderness. Laboratory Laboratory Tests Test 06/09/16 06/09/16 05:33 09:37 White Blood Count 4.3 TH/MM3 Red Blood Count 3.88 MIL/MM3 Hemoglobin 11.4 GM/DL Hematocrit 33.5 % Mean Corpuscular Volume 86.3 FL Mean Corpuscular Hemoglobin 29.5 PG Mean Corpuscular Hemoglobin 34.2 % Concent Red Cell Distribution Width 14.1 % Platelet Count 205 TH/MM3 Mean Platelet Volume 7.1 FL Activated Partial 98.6 SEC 63.9 SEC Thromboplast Time Imaging Last Impressions Chest X-Ray 06/07/16 0000 Signed Impressions: Service Date/Time: Tuesday, June 07, 2016 21:49 - CONCLUSION: No acute disease. Atherosclerotic cardiovascular disease with compensated left ventricular cardiomegaly Jensen Amaya MD Lower Extremity Ultrasound 06/06/16 0000 Signed Impressions: Service Date/Time: Monday, June 06, 2016 14:47 - CONCLUSION: Normal examination for a patient of this age. Sonu Renteria MD Chest CT 06/06/16 0000 Signed Impressions: Service Date/Time: Tuesday, June 07, 2016 21:45 - CONCLUSION: No acute cardiopulmonary process. Atherosclerotic cardiovascular disease inclusive of compensated cardiomegaly and extensive calcifications in the left coronary artery occlusive vein, anterior descending, and circumflex. Jensen Amaya MD Carotid Artery Ultrasound 06/06/16 0000 Signed Impressions: Service Date/Time: Monday, June 06, 2016 14:13 - CONCLUSION: 1. There is [id number] atherosclerotic disease in the carotid arteries bilaterally, predominantly around the carotid bifurcations. No hemodynamically significant stenosis. Vertebral artery flow antegrade bilaterally. Sonu Renteria MD Assessment and Plan Problem List: (1) Coronary artery disease (2) Hyperlipemia (3) Hypertension (4) Chronic back pain (5) DVT (deep venous thrombosis) Assessment and Plan CAD - Severe LAD dz. Unsuccessful attempt at percutaneous revascularization. Low normal EF. mild valve dz. normal pulmonary pressures. Plan for CABG in am. CABG x 2 planned, LAD & Diagonal cont med therapy Jn Griffith MD Jun 09, 2016 14:41
[2016-06-09 17:18] LABS: APTT (PATIENT) 54.7 SEC (24.3-30.1)
[2016-06-09] MEDS: TAMSULOSIN HCL 0.4 MG CAP PO SCH (21:30)
[2016-06-10] VITALS (22 sets, daily range): BP systolic 101–114; BP diastolic 45–72; PULSE 51–85; RESP 10–20; TEMP 96.4–98.1; O2SAT 92–98
[2016-06-10] MEDS ORDERED: SODIUM CHLORID 0.9% 500 ML IV SCH (02:00)
[2016-06-10] MEDS ORDERED: INSULIN HUMAN REGULAR 1,000 UNITS/10 ML VIAL SQ PRN (02:00)
[2016-06-10] MEDS ORDERED: VECURONIUM BROMIDE 10 MG VIAL IV ONE (05:00)
[2016-06-10] MEDS ORDERED: PROTAMINE SULFATE 250 MG/25 ML VIAL IV ONE (05:00)
[2016-06-10] MEDS ORDERED: AMINOCAPROIC ACID INJ 250 MG/ML 20 ML VIAL IV ONE (05:00)
[2016-06-10] MEDS ORDERED: HEPARIN SODIUM - SQ 10,000 UNITS/ML VIAL SQ ONE (05:00)
[2016-06-10] MEDS ORDERED: LIDOCAINE HCL 1% 30 ML VIAL OTHER ONE (05:00)
[2016-06-10] MEDS ORDERED: MAGNESIUM SULFATE 1000 MG/2 ML VIAL (PED) IV ONE (05:00)
[2016-06-10] MEDS ORDERED: PHENYLEPHRINE HCL 10 MG/ML VIAL IV ONE (05:00)
[2016-06-10] MEDS: INSULIN NovoLIN REGULAR SUPPLEMENTAL SCALE SQ SCH (06:24)
[2016-06-10] MEDS: METOPROLOL TARTRATE 25 MG TAB PO SCH ×2 (06:25→20:30)
[2016-06-10] MEDS ORDERED: HEPARIN SODIUM - SQ 10,000 UNITS/ML VIAL ONE ×2 (06:59→07:51)
[2016-06-10] MEDS ORDERED: CARDIOPLEGIC IRR 1,000 ML ONE (07:22)
[2016-06-10] MEDS ORDERED: POTASSIUM CHLORIDE 40 MEQ/20 ML VIAL ONE (07:23)
[2016-06-10] MEDS ORDERED: HEPARIN SODIUM - IV 10,000 UNITS/10 ML VIAL ONE (07:50)
[2016-06-10] MEDS ORDERED: VANCOMYCIN HCL 1000 MG VIAL ONE (07:50)
[2016-06-10] MEDS: LACTATED RINGER'S 1000 ML IV SCH (08:06)
[2016-06-10] MEDS: PRAVASTATIN SOD 40 MG TAB PO SCH (09:00)
[2016-06-10] MEDS: PIOGLITAZONE HCL 15 MG TAB PO SCH (09:00)
[2016-06-10] MEDS: PANTOPRAZOLE SOD 40 MG DELAYED RELEASE TAB PO SCH (09:00)
[2016-06-10] MEDS: DOCUSATE SODIUM 100 MG CAP PO SCH ×2 (09:00→20:29)
[2016-06-10] MEDS: SODIUM CHLORIDE 0.9% FLUSH 5 ML FLUSH IV FLUSH SCH ×3 (09:00→20:30)
[2016-06-10] MEDS: ASPIRIN 81 MG CHEW TAB PO SCH (09:00)
[2016-06-10] MEDS ORDERED: DOBUTamine PREMIX DRIP 250 ML IV SCH (12:10)
[2016-06-10] MEDS ORDERED: ACETAMINOPHEN 325 MG TAB PO PRN (12:15)
[2016-06-10] MEDS ORDERED: DEXTROSE 50% IN WATER 50 ML VIAL(D50) IV PUSH PRN (12:15)
[2016-06-10] MEDS ORDERED: MEPERIDINE HCL 25 MG/ML VIAL IV PRN (12:15)
[2016-06-10] MEDS ORDERED: CLEVIDIPINE INJ 50 ML IV SCH (12:15)
[2016-06-10] MEDS ORDERED: CALCIUM CHLORIDE 10% 1 GRAM/10 ML VIAL IV PRN (12:15)
[2016-06-10] MEDS ORDERED: INSULIN REGULAR (IV INFUSION) 100 UNITS in SODIUM CHLORIDE 0.9% INJ 99 ML IV SCH (12:15)
[2016-06-10] MEDS ORDERED: EPINEPHrine (1:1000) INJ 4 MG in DEXTROSE 5% IN WATER INJ 246 ML IV SCH ×2 (12:15)
[2016-06-10] MEDS ORDERED: PHENYLEPHRINE INJ 40 MG in DEXTROSE 5% IN WATE 500 ML INJ 496 ML IV SCH ×2 (12:15)
[2016-06-10] MEDS ORDERED: ACETAMINOPHEN/HYDROcodone 325 MG/5 MG TAB PO PRN (12:15)
[2016-06-10] MEDS ORDERED: NITROGLYCERIN-DEXTROSE INJ 250 ML IV SCH (12:15)
[2016-06-10] MEDS ORDERED: SODIUM CHLORIDE 0.9% FLUSH 5 ML FLUSH IV FLUSH PRN (12:15)
[2016-06-10] MEDS ORDERED: CALCIUM CHLORIDE INJ 1 GM in SODIUM CHLORIDE 0.9% INJ 100 ML IV PRN (12:15)
[2016-06-10] MEDS ORDERED: DOPamine INJ PREMIX 500 ML IV SCH (12:15)
[2016-06-10] MEDS ORDERED: METOPROLOL TARTRATE 5 MG/5 ML VIAL IV PUSH PRN (12:15)
[2016-06-10] MEDS ORDERED: DEXMEDETOMIDINE INJ 50 ML IV SCH (12:15)
[2016-06-10] MEDS ORDERED: POTASSIUM CHLORIDE 20 MEQ CONTROLLED RELEASE TAB PO PRN ×2 (12:15)
[2016-06-10] MEDS ORDERED: ONDANSETRON HCL 4 MG/2 ML VIAL IV PUSH PRN (12:15)
[2016-06-10] MEDS ORDERED: hydrALAZINE HCL 20 MG/ML VIAL IV PRN (12:15)
[2016-06-10] MEDS ORDERED: ACETAMINOPHEN 650 MG SUPP RECTAL PRN (12:15)
[2016-06-10] MEDS ORDERED: MORPHINE SULFATE 4 MG/ML INJ IV PRN (12:15)
[2016-06-10] MEDS ORDERED: MAGNESIUM SULFATE INJ 2 GM in SODIUM CHLORIDE 0.9% INJ 100 ML IV PRN ×4 (12:15)
[2016-06-10] MEDS ORDERED: POTASSIUM CHLOR 20 MEQ PREMIX 100 ML IV PRN (12:15)
--- NOTE | 2016-06-10 12:16 | PD.OP ---
cc: Darien Montejo MD; Jn Griffith MD Operative Report Date of Surgery: Jun 10, 2016 Preoperative Diagnosis: Postoperative Diagnosis: Procedure: 1. Urgent Off-pump Coronary Artery Bypass Grafting x 2 with left internal mammary artery (HOLGUIN) to left anterior descending (LAD), reverse saphenous vein graft to D1 2. Right Leg Endoscopic Vein [place] 3. Intraoperative Vein Mapping. . Surgeon: Darien Montejo Orthodontic Treatment Coordinator(s): Sarah Thornton Operation and Findings: PREPROCEDURE DIAGNOSES 1. Severe LAD/Diagonal Coronary Artery Disease. 2. Unstable Angina POSTPROCEDURE DIAGNOSES Same SURGICAL PROCEDURE 1. Urgent Off-pump Coronary Artery Bypass Grafting x 2 with left internal mammary artery (HOLGUIN) to left anterior descending (LAD), reverse saphenous vein graft to D1 2. Right Leg Endoscopic Vein [place] 3. Intraoperative Vein Mapping. SURGEON Darien Montejo MD ROUNDING MACHINE TENDER FAWN [place] ANESTHESIA General endotracheal . CREDIT UNION TELLER Oseas Crawford MD PREPARATION ChloraPrep. COUNTS Needle, sponge, and instrument counts were correct. DRAINS Two 32-[place] mediastinal tubes. COMPLICATIONS None. INDICATIONS FOR PROCEDURE The patient is a 81-year-old presenting with chest pain. Patient was noted to have totally occluded LAD with moderate diagonal 1 coronary artery disease. The patient is being brought to the operating room for urgent surgical revascularization therapy of his coronary lesions. PROCEDURE Patient was brought to the operating room and placed supine on the OR table. Following the induction of adequate general endotracheal anesthesia and placement of appropriate monitoring devices, intraoperative vein mapping was performed which revealed suitable-caliber conduit in bilateral lower extremities. The patient was then prepped and draped in standard sterile fashion. Next, 2500 units of intravenous heparin was given. The right greater saphenous vein was harvested endoscopically. This appeared to be a useable- caliber conduit. Simultaneously, a median sternotomy was performed and the HOLGUIN was harvested as a pedicle from the Subclavian vein down to its bifurcation. The patient was systemically heparinized and anticoagulation monitored by serial ACT measurements. The internal mammary artery had good pulsatile flow in it and was a decent-caliber conduit. The pericardium was then divided and targets analyzed. At this point, all anastomoses were performed in a beating- heart fashion using the Maquet stabilizing system and intracoronary shunts. The left internal mammary artery was anastomosed to the distal LAD in an end-to- side fashion using 7-0 Prolene. Segment of saphenous vein graft was then anastomosed to the D1 in an end-to-side fashion using 7-0 Prolene. The proximal anastomosis was then constructed to the ascending aorta in a running manner using 6-0 Prolene. All anastomotic sites were inspected and appeared to be hemostatic and patent. Protamine solution was given. Strict hemostasis was assured. The closure was undertaken. 2 chest tubes were placed. The pericardium was reapproximated in the midline. The sternum was approximated using sternal wires. The muscular and fascial layer were then closed in 3 layers. The endoscopic vein harvest site was closed in 2 layers. The patient tolerated the procedure well and was transferred to CVICU in stable condition. Darien Montejo MD Jun 10, 2016 12:16
[2016-06-10] MEDS ORDERED: Post-op Orders (for Pharmacy) MISC OTHER ONE (12:30)
[2016-06-10] MEDS: POTASSIUM CHLOR 20 MEQ PREMIX 100 ML IV PRN ×2 (13:05→14:55)
[2016-06-10] MEDS: ALBUMIN HUMAN 5% 12.5 GM/250 ML BOTTLE IV PRN ×2 (13:06→21:22)
[2016-06-10] MEDS: ACETAMINOPHEN 1000 MG/100 ML VIAL IV SCH ×2 (13:16→20:29)
[2016-06-10] MEDS: KETOROLAC TROMETHAMINE 30 MG/ML (IVP) VIAL IV PUSH PRN ×2 (13:52→20:28)
[2016-06-10] MEDS ORDERED: RESP: ALBUTEROL 2.5 MG/IPRATROPIUM 0.5 MG NEB (PRN) NEB (14:00)
[2016-06-10] MEDS ORDERED: RESP: RACEPINEPHRINE 2.25% 0.5 ML NEB NEB PRN (14:00)
--- NOTE | 2016-06-10 14:02 | RADRPT ---
EXAM DATE/TIME: 06/10/2016 12:56 [facility] COMPARISON: No previous studies available for comparison. INDICATIONS: S/p CABG. MEDICAL HISTORY: None. SURGICAL HISTORY: None. ENCOUNTER: Initial ACUITY: 1 day PAIN SCORE: Non-responsive. LOCATION: Bilateral chest FINDINGS: An endotracheal tube has its tip 3 cm above the omi. A nasogastric tube has its tip below the davie phragm. Bilateral chest tubes are in good positions. No pneumothorax is noted. Atelectasis is note d within the mid lung field. A right internal jugular central line has its tip in the superior vena cava. Median sternotomy wires are noted status post cardiac surgery. CONCLUSION: 1. Atelectasis within the left mid lung field. 2. Multiple tubes and lines are in good position. 3. No evidence of pneumothorax. Laureano Koch MD on June 10, 2016 at 13:55 Board Certified Radiologist. This report was verified electronically.
[2016-06-10] MEDS: RESP: ALBUTEROL 2.5 MG/IPRATROPIUM 0.5 MG NEB (SCH) NEB ×2 (15:39→20:39)
[2016-06-10] MEDS ORDERED: fentaNYL CITRATE 1000 MCG/20 ML VIAL ONE (16:00)
[2016-06-10] MEDS ORDERED: MIDAZOLAM HCL 5 MG/5 ML VIAL ONE (16:00)
[2016-06-10] MEDS: ceFAZolin 2 GM PREMIX 50 ML IV SCH (17:18)
[2016-06-10] MEDS: ACETAMINOPHEN/HYDROcodone 325 MG/5 MG TAB PO PRN (20:29)
[2016-06-10] MEDS: AMIODARONE 200 MG TAB PO SCH (20:29)
[2016-06-10] MEDS: TAMSULOSIN HCL 0.4 MG CAP PO SCH (20:29)
[2016-06-10] MEDS: LACTATED RINGER'S 1000 ML INJ 500 ML IV PRN (21:23)
[2016-06-11] VITALS (13 sets, daily range): BP systolic 101–136; BP diastolic 48–72; PULSE 72–97; RESP 14–18; TEMP 98.2–98.6; O2SAT 94–98
[2016-06-11] MEDS: ACETAMINOPHEN 1000 MG/100 ML VIAL IV SCH ×2 (01:15→05:17)
[2016-06-11] MEDS: ceFAZolin 2 GM PREMIX 50 ML IV SCH ×3 (01:16→18:46)
[2016-06-11] MEDS: LACTATED RINGER'S 1000 ML IV SCH (02:00)
[2016-06-11] MEDS: RESP: ALBUTEROL 2.5 MG/IPRATROPIUM 0.5 MG NEB (SCH) NEB ×3 (03:25→13:50)
[2016-06-11 04:52] LABS: HEMATOCRIT 27.9 % (39.0-51.0); MEAN CELL VOLUME 86.8 FL (80.0-100.0); MEAN CORPUSCULAR HEMOGLOBIN 29.6 PG (27.0-34.0); MEAN CORPUSCULAR HGB CONC 34.1 % (32.0-36.0); PLATELET COUNT 189 TH/MM3 (150-450); RED BLOOD COUNT 3.21 MIL/MM3 (4.50-5.90); RED CELL DISTRIBUTION WIDTH 14.4 % (11.6-17.2); REVIEW FLAG FINAL; WHITE BLOOD COUNT 8.9 TH/MM3 (4.0-11.0)
[2016-06-11] MEDS: PANTOPRAZOLE SOD 40 MG DELAYED RELEASE TAB PO SCH (05:16)
[2016-06-11] MEDS: LACTATED RINGER'S 1000 ML INJ 500 ML IV PRN (05:16)
[2016-06-11 05:20] LABS: BICARBONATE 22.9 MEQ/L (21.0-32.0); MAGNESIUM 1.7 MG/DL (1.5-2.5); POTASSIUM 3.3 MEQ/L (3.5-5.1)
--- NOTE | 2016-06-11 06:00 | RADRPT ---
EXAM DATE/TIME: 06/11/2016 05:14 [facility] COMPARISON: CHEST SINGLE AP, June 10, 2016, 12:56. INDICATIONS : Status post CABG. MEDICAL HISTORY : None. SURGICAL HISTORY : None. ENCOUNTER: Subsequent ACUITY: 2 days PAIN SCORE: Non-responsive. LOCATION: Bilateral chest FINDINGS: A single view of the chest demonstrates diminished lung volumes with bibasilar atelectasis. Status po st CABG. Bilateral chest tubes without pneumothorax. Right jugular central line with tip in the cavoa trial junction unchanged. Endotracheal tube and nasogastric tube have been removed. The cardiomediast inal contours are unremarkable. Osseous structures are intact. CONCLUSION: 1. Diminished lung volumes and probable bibasilar atelectasis. 2. Status post CABG with support lines and tubes as described above. Ahsan Alarcon MD on June 11, 2016 at 5:57 Board Certified Radiologist. This report was verified electronically.
[2016-06-11] MEDS: POTASSIUM CHLOR 20 MEQ PREMIX 100 ML IV PRN ×2 (06:21→08:32)
--- NOTE | 2016-06-11 07:59 | PD.CARD.PN ---
Subjective Subjective Remarks s/p CABG doing well Objective Vital Signs / I&O Vital Signs Date Time Temp Pulse Resp B/P Pulse Ox O2 Delivery O2 Flow Rate FiO2 06/11/16 07:42 Nasal Cannula 2.00 98 06/11/16 07:30 98.3 83 18 101/57 98 103/48 06/11/16 07:30 77 06/11/16 07:21 96 Nasal Cannula 2.50 06/11/16 03:45 98.2 79 16 118/60 97 116/72 06/11/16 03:45 79 06/10/16 23:10 98.0 77 16 102/53 96 105/45 06/10/16 23:10 77 06/10/16 20:43 96 Nasal Cannula 4.00 06/10/16 20:41 96 Nasal Cannula 4.00 06/10/16 19:32 98.1 78 19 107/58 96 110/47 06/10/16 19:32 96 Nasal Cannula 4.00 06/10/16 19:00 78 06/10/16 18:00 82 06/10/16 16:00 84 06/10/16 15:00 85 06/10/16 15:00 97.5 85 16 106/47 92 06/10/16 13:07 98 Nasal Cannula 4 06/10/16 13:00 74 06/10/16 12:45 40 06/10/16 12:35 95 50 06/10/16 12:30 55 06/10/16 12:30 96.4 55 10 101/58 94 114/54 06/10/16 12:30 96.4 06/10/16 12:30 50 06/10/16 08:10 98.1 64 16 111/68 96 06/10/16 08:10 96 Room Air 06/10/16 08:00 68 I/O 06/10/16 06/10/16 06/10/16 06/11/16 06/11/16 06/11/16 07:00 15:00 23:00 07:00 15:00 23:00 Intake Total 108 ml 2720 ml 2273 ml Output Total 600 ml 930 ml 640 ml Balance -492 ml 1790 ml 1633 ml Intake Oral 0 ml 480 ml IV Total 108 ml 2720 ml 1793 ml Output Urine Total 600 ml 710 ml 500 ml Chest Tube Drainage Total 220 ml 140 ml # Bowel Movements 1 0 0 Physical Exam GENERAL: Well-nourished, well-developed patient in no apparent distress. NECK: No JVD. No carotid bruit. CARDIOVASCULAR: Regular rate and rhythm. S1/S2 no murmur, rub, or gallop. RESPIRATORY: No accessory muscle use. Clear to auscultation. Breath sounds equal bilaterally. GASTROINTESTINAL: Abdomen soft, non-tender, nondistended. MUSCULOSKELETAL: Extremities without clubbing, cyanosis, or edema. Laboratory Laboratory Tests Test 06/11/16 04:39 White Blood Count 8.9 TH/MM3 Red Blood Count 3.21 MIL/MM3 Hemoglobin 9.5 GM/DL Hematocrit 27.9 % Mean Corpuscular Volume 86.8 FL Mean Corpuscular Hemoglobin 29.6 PG Mean Corpuscular Hemoglobin 34.1 % Concent Red Cell Distribution Width 14.4 % Platelet Count 189 TH/MM3 Mean Platelet Volume 7.5 FL Sodium Level 140 MEQ/L Potassium Level 3.3 MEQ/L Chloride Level 107 MEQ/L Carbon Dioxide Level 22.9 MEQ/L Anion Gap 10 MEQ/L Blood Urea Nitrogen 11 MG/DL Creatinine 0.61 MG/DL Estimat Glomerular Filtration 127 ML/MIN Rate Random Glucose 147 MG/DL Calcium Level 8.1 MG/DL Magnesium Level 1.7 MG/DL Assessment and Plan Problem List: (1) Coronary artery disease (2) Hyperlipemia (3) Hypertension (4) Chronic back pain (5) DVT (deep venous thrombosis) Assessment and Plan CAD s/p CABG 2 vessels HOLGUIN-LAD, and SVG-D1 doing well, we will sign off and plan on seeing in our office after discharge Maycol Odonnell Jun 11, 2016 07:59
[2016-06-11] MEDS: SODIUM CHLORIDE 0.9% FLUSH 5 ML FLUSH IV FLUSH SCH ×3 (08:31→20:58)
[2016-06-11] MEDS: DOCUSATE SODIUM 100 MG CAP PO SCH ×2 (08:31→20:58)
[2016-06-11] MEDS: ASPIRIN 81 MG CHEW TAB PO SCH (08:31)
[2016-06-11] MEDS: PRAVASTATIN SOD 40 MG TAB PO SCH (08:31)
[2016-06-11] MEDS: CLOPIDOGREL 75 MG TAB PO SCH (08:31)
--- NOTE | 2016-06-11 08:44 | RSPPFT ---
DATE OF PROCEDURE: 06/06/16 COMMENTS: Spirometry with FVC of 2.8 predicted 2.8, FEV1 of 2.4 predicted 1.9, FEV1/FVC ratio 87% predicted 74%. IMPRESSION: On the basis of the above, patient's spirometry is within the predicted range.
[2016-06-11] MEDS: PIOGLITAZONE HCL 15 MG TAB PO SCH (09:00)
[2016-06-11] MEDS: AMIODARONE 200 MG TAB PO SCH ×2 (09:00→20:58)
[2016-06-11] MEDS: METOPROLOL TARTRATE 25 MG TAB PO SCH ×2 (09:00→20:58)
[2016-06-11] MEDS ORDERED: FUROSEMIDE 20 MG/2 ML VIAL IV PUSH ONE (09:30)
[2016-06-11] MEDS ORDERED: POTASSIUM CHLORIDE 20 MEQ CONTROLLED RELEASE TAB PO ONE (09:30)
[2016-06-11] MEDS: ACETAMINOPHEN/HYDROcodone 325 MG/5 MG TAB PO PRN ×2 (09:40→18:23)
[2016-06-11] MEDS ORDERED: GLUCAGON 1 MG/ML VIAL OTHER PRN (09:45)
[2016-06-11] MEDS ORDERED: BISACODYL 10 MG SUPP RECTAL PRN (09:45)
[2016-06-11] MEDS ORDERED: DEXTROSE 50% IN WATER 50 ML VIAL(D50) IV PRN (09:45)
[2016-06-11] MEDS ORDERED: SOD PHOSPHATE/SOD BIPHOSPHATE (ADULT) ENEMA 133ML RECTAL PRN (09:45)
[2016-06-11] MEDS ORDERED: BISACODYL EC 5 MG TABEC PO PRN (09:45)
[2016-06-11] MEDS ORDERED: MAGNESIUM HYDROXIDE SUSP 30 ML CUP PO PRN (09:45)
[2016-06-11] MEDS: INSULIN ASPART SUPPLEMENTAL SCALE SQ SCH ×4 (10:34→22:00)
--- NOTE | 2016-06-11 11:10 | EKG ---
Date Performed: 06/11/2016 Time Performed: 04:54:40 PTAGE: 81 years EKG: Sinus rhythm Leftward axis Possible anterior infarct - age undetermined Left ventricular hypertrophy Lateral ST-T changes may be due to hypertrophy and/or ischemia Abnormal ECG PREVIOUS TRACING : 06/07/2016 05.30 Compared to prior tracing no significant change DOCTOR: Marlo Chopra Interpretating Date/Time 06/11/2016 11:09:02
--- NOTE | 2016-06-11 16:36 | PD.CAR.PN ---
CVT Progress Note Subjective/Hospital Course: 81/ male undergoing ECG for clearance for Left Hip Surgery, found to have abnormal ECG, followed by Heart Cath by Dr Griffith + multi vessel disease, 40% Left main, 30% prox LAD, mid/distal LAD 99%, diagonal 90%, CX 100% EF 45% mild MR PMH: Left Hip pain, CAD, ureteral stenosis, DDD, GERD, chronic back pain , DM US Lower ext revealed + DVT left post tibial vein 06/09 doing well, scheduled for surgery in am will need anticoagulation after surgery for DVT 06/10 1. Urgent Off-pump Coronary Artery Bypass Grafting x 2 with left internal mammary artery (HOLGUIN) to left anterior descending (LAD), reverse saphenous vein graft to D1 2. Right Leg Endoscopic Vein [place] 06/11 extubated post surgery, doing well, BP labile start BB later today , gentle diuresis aggressive pulm toileting chest tube drained 140cc/ 12 hours transfer to stepdown Objective: GENERAL: SKIN: Warm and dry./ prevena dressing to leg geremias wrap to right leg HEAD: Normocephalic. EYES: No scleral icterus. No injection or drainage. NECK: Supple, trachea midline. No JVD or lymphadenopathy. CARDIOVASCULAR: Regular rate and rhythm without murmurs, gallops, or rubs. mild general edema RESPIRATORY: Breath sounds equal bilaterally. No accessory muscle use. chest tubes to wall suction, no air leak GASTROINTESTINAL: Abdomen soft, non-tender, nondistended. MUSCULOSKELETAL: No cyanosis, or edema. BACK: Nontender without obvious deformity. No CVA tenderness. Vital Signs Date Time Temp Pulse Resp B/P Pulse Ox O2 Delivery O2 Flow Rate FiO2 06/11/16 16:09 98.6 86 18 120/57 95 06/11/16 16:03 86 06/11/16 11:31 72 06/11/16 11:31 98.3 72 14 101/50 94 Arterial Line 06/11/16 10:00 80 06/11/16 07:42 Nasal Cannula 2.00 98 06/11/16 07:30 98.3 83 18 101/57 98 103/48 06/11/16 07:30 77 06/11/16 07:21 96 Nasal Cannula 2.50 06/11/16 03:45 98.2 79 16 118/60 97 116/72 06/11/16 03:45 79 06/10/16 23:10 98.0 77 16 102/53 96 105/45 06/10/16 23:10 77 06/10/16 20:43 96 Nasal Cannula 4.00 06/10/16 20:41 96 Nasal Cannula 4.00 06/10/16 19:32 98.1 78 19 107/58 96 110/47 06/10/16 19:32 96 Nasal Cannula 4.00 06/10/16 19:00 78 06/10/16 18:00 81 Labs: Laboratory Tests Test 06/11/16 04:39 White Blood Count 8.9 TH/MM3 (4.0-11.0) Red Blood Count 3.21 MIL/MM3 (4.50-5.90) Hemoglobin 9.5 GM/DL (13.0-17.0) Hematocrit 27.9 % (39.0-51.0) Mean Corpuscular Volume 86.8 FL (80.0-100.0) Mean Corpuscular Hemoglobin 29.6 PG (27.0-34.0) Mean Corpuscular Hemoglobin 34.1 % Concent (32.0-36.0) Red Cell Distribution Width 14.4 % (11.6-17.2) Platelet Count 189 TH/MM3 (150-450) Mean Platelet Volume 7.5 FL (7.0-11.0) Sodium Level 140 MEQ/L (136-145) Potassium Level 3.3 MEQ/L (3.5-5.1) Chloride Level 107 MEQ/L (98-107) Carbon Dioxide Level 22.9 MEQ/L (21.0-32.0) Anion Gap 10 MEQ/L (5-15) Blood Urea Nitrogen 11 MG/DL (7-18) Creatinine 0.61 MG/DL (0.60-1.30) Estimat Glomerular Filtration 127 ML/MIN Rate (>89) Random Glucose 147 MG/DL (74-106) Calcium Level 8.1 MG/DL (8.5-10.1) Magnesium Level 1.7 MG/DL (1.5-2.5) Result Diagram: 06/11/1643806/11/16438 Telemetry: NSR (1) Coronary artery disease Plan: on ASA, statin , BB (2) S/P CABG x 2 Plan: aggressive pulm toileting nebs, ezpap ambulate leave chest tubes in (3) Hyperlipemia Plan: statin (4) Hypertension Plan: stable (5) Chronic back pain Plan: pain control (6) DVT (deep venous thrombosis) Plan: will need anticoagulation after surgery , and when chest tubes out Nara Ruiz Jun 11, 2016 16:36
[2016-06-11] MEDS: TAMSULOSIN HCL 0.4 MG CAP PO SCH (20:58)
[2016-06-12] VITALS (28 sets, daily range): BP systolic 128–143; BP diastolic 61–72; PULSE 76–106; RESP 17–20; TEMP 97.6–98.8; O2SAT 90–96
[2016-06-12] MEDS: ceFAZolin 2 GM PREMIX 50 ML IV SCH (01:16)
[2016-06-12] MEDS: INSULIN ASPART SUPPLEMENTAL SCALE SQ SCH ×5 (02:00→21:00)
[2016-06-12] MEDS: LACTATED RINGER'S 1000 ML IV SCH (02:00)
[2016-06-12 06:03] LABS: AUTOMATED NEUTROPHIL # 6.8 TH/MM3 (1.8-7.7); BASOPHIL % 0.3 % (0.0-2.0); EOSINOPHIL # 0.1 TH/MM3 (0-0.4); EOSINOPHIL % 1.4 % (0.0-4.0); HEMO FLAGS DIFF FINAL; LYMPH % 6.2 % (9.0-44.0); LYMPHOCYTE # 0.5 TH/MM3 (1.0-4.8); MEAN CELL VOLUME 87.4 FL (80.0-100.0); MEAN CORPUSCULAR HEMOGLOBIN 29.9 PG (27.0-34.0); MEAN CORPUSCULAR HGB CONC 34.3 % (32.0-36.0); MONO % 11.8 % (0.0-8.0); NEUT % 80.3 % (16.0-70.0); PLATELET COUNT 203 TH/MM3 (150-450); RED BLOOD COUNT 3.32 MIL/MM3 (4.50-5.90); RED CELL DISTRIBUTION WIDTH 14.3 % (11.6-17.2); WHITE BLOOD COUNT 8.5 TH/MM3 (4.0-11.0)
[2016-06-12] MEDS: PANTOPRAZOLE SOD 40 MG DELAYED RELEASE TAB PO SCH (06:11)
[2016-06-12 06:16] LABS: BICARBONATE 26.3 MEQ/L (21.0-32.0); MAGNESIUM 1.7 MG/DL (1.5-2.5); POTASSIUM 3.8 MEQ/L (3.5-5.1)
[2016-06-12] MEDS: RESP: ALBUTEROL 2.5 MG/IPRATROPIUM 0.5 MG NEB (SCH) NEB ×3 (07:21→21:28)
[2016-06-12] MEDS: POLYETHYLENE GLYCOL 17 GM PKG PO SCH (08:57)
[2016-06-12] MEDS: ASPIRIN 81 MG CHEW TAB PO SCH (08:59)
[2016-06-12] MEDS: MULTIVITAMINS/MINERALS THERAPEUTIC TAB PO SCH (08:59)
[2016-06-12] MEDS: METOPROLOL TARTRATE 25 MG TAB PO SCH ×3 (08:59→20:39)
[2016-06-12] MEDS: AMIODARONE 200 MG TAB PO SCH ×2 (09:00→20:39)
[2016-06-12] MEDS ORDERED: POTASSIUM CHLORIDE 20 MEQ CONTROLLED RELEASE TAB PO ONE ×3 (09:00→12:00)
[2016-06-12] MEDS: PRAVASTATIN SOD 40 MG TAB PO SCH (09:00)
[2016-06-12] MEDS: DOCUSATE SODIUM 100 MG CAP PO SCH ×2 (09:00→20:39)
[2016-06-12] MEDS: SODIUM CHLORIDE 0.9% FLUSH 5 ML FLUSH IV FLUSH SCH ×2 (09:01→20:39)
[2016-06-12] MEDS: CLOPIDOGREL 75 MG TAB PO SCH (09:01)
[2016-06-12] MEDS: MAGNESIUM SULFATE 1 GM PREMIX 100 ML IV SCH ×2 (10:29→12:33)
--- NOTE | 2016-06-12 11:12 | PD.CAR.PN ---
CVT Progress Note CVT: POD #: 2 Subjective/Hospital Course: 81/ male undergoing ECG for clearance for Left Hip Surgery, found to have abnormal ECG, followed by Heart Cath by Dr Griffith + multi vessel disease, 40% Left main, 30% prox LAD, mid/distal LAD 99%, diagonal 90%, CX 100% EF 45% mild MR PMH: Left Hip pain, CAD, ureteral stenosis, DDD, GERD, chronic back pain , DM US Lower ext revealed + DVT left post tibial vein 06/09 doing well, scheduled for surgery in am will need anticoagulation after surgery for DVT 06/10 1. Urgent Off-pump Coronary Artery Bypass Grafting x 2 with left internal mammary artery (HOLGUIN) to left anterior descending (LAD), reverse saphenous vein graft to D1 2. Right Leg Endoscopic Vein [place] 06/11 extubated post surgery, doing well, BP labile start BB later today , gentle diuresis aggressive pulm toileting chest tube drained 140cc/ 12 hours transfer to stepdown 06/12 eval for possible removal of chest tube later today 120c/ 12 hrs remains in NSR gentle diuresis / lower ext edema and bibasilar crackles pt requesting rehab at discharge Objective: Vital Signs Date Time Temp Pulse Resp B/P Pulse Ox O2 Delivery O2 Flow Rate FiO2 06/12/16 07:22 95 Nasal Cannula 2.50 06/12/16 07:00 83 06/12/16 06:00 88 06/12/16 05:00 82 06/12/16 04:30 98.6 86 18 129/61 90 06/12/16 04:00 87 06/12/16 04:00 96 Nasal Cannula 2.00 06/12/16 03:00 90 06/12/16 02:00 97 06/12/16 01:00 86 06/12/16 00:00 81 06/12/16 00:00 96 Nasal Cannula 2.00 06/12/16 00:00 98.6 81 18 139/67 96 06/11/16 23:00 84 06/11/16 22:00 97 06/11/16 21:00 85 06/11/16 20:00 96 Nasal Cannula 2.50 06/11/16 20:00 98.6 94 18 136/63 96 06/11/16 20:00 96 Nasal Cannula 2.50 06/11/16 20:00 95 06/11/16 19:00 94 06/11/16 16:09 98.6 86 18 120/57 95 06/11/16 16:03 86 06/11/16 11:31 72 06/11/16 11:31 98.3 72 14 101/50 94 Arterial Line Labs: Laboratory Tests Test 06/12/16 05:22 White Blood Count 8.5 TH/MM3 (4.0-11.0) Red Blood Count 3.32 MIL/MM3 (4.50-5.90) Hemoglobin 9.9 GM/DL (13.0-17.0) Hematocrit 29.0 % (39.0-51.0) Mean Corpuscular Volume 87.4 FL (80.0-100.0) Mean Corpuscular Hemoglobin 29.9 PG (27.0-34.0) Mean Corpuscular Hemoglobin 34.3 % Concent (32.0-36.0) Red Cell Distribution Width 14.3 % (11.6-17.2) Platelet Count 203 TH/MM3 (150-450) Mean Platelet Volume 7.7 FL (7.0-11.0) Neutrophils (%) (Auto) 80.3 % (16.0-70.0) Lymphocytes (%) (Auto) 6.2 % (9.0-44.0) Monocytes (%) (Auto) 11.8 % (0.0-8.0) Eosinophils (%) (Auto) 1.4 % (0.0-4.0) Basophils (%) (Auto) 0.3 % (0.0-2.0) Neutrophils # (Auto) 6.8 TH/MM3 (1.8-7.7) Lymphocytes # (Auto) 0.5 TH/MM3 (1.0-4.8) Monocytes # (Auto) 1.0 TH/MM3 (0-0.9) Eosinophils # (Auto) 0.1 TH/MM3 (0-0.4) Basophils # (Auto) 0.0 TH/MM3 (0-0.2) CBC Comment DIFF FINAL Differential Comment Sodium Level 138 MEQ/L (136-145) Potassium Level 3.8 MEQ/L (3.5-5.1) Chloride Level 104 MEQ/L (98-107) Carbon Dioxide Level 26.3 MEQ/L (21.0-32.0) Anion Gap 8 MEQ/L (5-15) Blood Urea Nitrogen 10 MG/DL (7-18) Creatinine 0.68 MG/DL (0.60-1.30) Estimat Glomerular Filtration 112 ML/MIN Rate (>89) Random Glucose 120 MG/DL (74-106) Calcium Level 8.4 MG/DL (8.5-10.1) Magnesium Level 1.7 MG/DL (1.5-2.5) Result Diagram: 06/12/1652106/12/16521 Telemetry: NSR (1) Coronary artery disease Plan: on ASA, statin , BB (2) S/P CABG x 2 Plan: aggressive pulm toileting nebs, ezpap ambulate eval for possible chest tube removal (3) Hyperlipemia Plan: statin (4) Hypertension Plan: stable (5) Chronic back pain Plan: pain control (6) DVT (deep venous thrombosis) Plan: will need anticoagulation after surgery , and when chest tubes out Nara Sarmiento Jun 12, 2016 11:11
[2016-06-12] MEDS ORDERED: FUROSEMIDE 40 MG/4 ML VIAL IV PUSH ONE (11:15)
[2016-06-12] MEDS ORDERED: MAGNESIUM SULFATE 1 GM PREMIX 100 ML IV ONE (12:00)
[2016-06-12] MEDS: TAMSULOSIN HCL 0.4 MG CAP PO SCH (20:39)
[2016-06-13] VITALS (27 sets, daily range): BP systolic 90–133; BP diastolic 56–77; PULSE 67–98; RESP 17–20; TEMP 97.5–98.8; O2SAT 92–95
[2016-06-13] MEDS: LACTATED RINGER'S 1000 ML IV SCH (02:00)
--- NOTE | 2016-06-13 05:16 | RADRPT ---
EXAM DATE/TIME: 06/13/2016 04:46 [facility] COMPARISON: CHEST SINGLE AP, June 11, 2016, 5:14. INDICATIONS : Status post chest tube removal. MEDICAL HISTORY : None. SURGICAL HISTORY : None. ENCOUNTER: Initial ACUITY: 1 day PAIN SCORE: Non-responsive. LOCATION: chest FINDINGS: The cardiac silhouette is enlarged in transverse diameter. There is bilateral lower lobe atelectasis versus pneumonia. A right sided internal jugular vein catheter is in place without pneumothorax with its tip in the superior vena cava. There is no evidence of pneumothorax following chest tube removal. CONCLUSION: 1. There is no evidence of pneumothorax. 2. Bilateral lower lobe atelectasis versus pneumonia. Oseas Jolley MD on June 13, 2016 at 5:11 Board Certified Radiologist. This report was verified electronically.
[2016-06-13 05:17] LABS: BICARBONATE 29.7 MEQ/L (21.0-32.0); MAGNESIUM 2.1 MG/DL (1.5-2.5)
[2016-06-13 05:23] LABS: POTASSIUM 4.6 MEQ/L (3.5-5.1)
[2016-06-13] MEDS: PANTOPRAZOLE SOD 40 MG DELAYED RELEASE TAB PO SCH (06:28)
[2016-06-13] MEDS: INSULIN ASPART SUPPLEMENTAL SCALE SQ SCH ×4 (06:29→21:11)
[2016-06-13] MEDS: RESP: ALBUTEROL 2.5 MG/IPRATROPIUM 0.5 MG NEB (SCH) NEB (07:22)
--- NOTE | 2016-06-13 08:32 | PD.CARD.PN ---
Subjective Subjective Remarks no complaints tubes out doing well Objective Medications Active Medications Furosemide (Lasix Inj) 40 mg ONCE ONCE IV PUSH Last administered on 06/12/16 12:06; Admin Dose 40 MG; Start 06/12/16 at 11:15; Stop 06/12/16 at 11:16; Status DC Insulin Aspart 1 1 ACHS SQ Last administered on 06/13/16 06:29; Admin Dose 1; Start 06/12/16 at 11:00 Magnesium Sulfate/ Dextrose (Magnesium Sulfate 1 Gm Premix) 100 ml @ 100 mls/ hr ONCE ONCE IV Last administered on 06/12/16 14:32; Admin Dose 100 MLS/HR; Start 06/12/16 at 12:00; Stop 06/12/16 at 12:59; Status DC Magnesium Sulfate/ Dextrose (Magnesium Sulfate 1 Gm Premix) 100 ml @ 100 mls/ hr Q1H IV Last administered on 06/12/16 12:33; Admin Dose 100 MLS/HR; Start 05/17 at 09:00; Stop 06/12/16 at 10:59; Status DC Metoprolol Tartrate (Lopressor) 25 mg Q12HR PO Last administered on 06/12/16 20 :39; Admin Dose 25 MG; Start 06/12/16 at 09:15; Stop 06/13/16 at 08:00; Status DC Metoprolol Tartrate (Lopressor) 25 mg Q8H PO; Start 06/13/16 at 08:00 Multivitamins/ Minerals Therapeutic (Theragran M Tab) 1 tab DAILY PO Last administered on 06/12/16 08:59; Admin Dose 1 TAB; Start 06/12/16 at 09:00 Polyethylene Glycol (Miralax) 17 gm DAILY PO Last administered on 06/12/16 08: 57; Admin Dose 17 GM; Start 06/12/16 at 09:00 Potassium Chloride 20 meq 20 meq ONCE ONCE PO Last administered on 06/12/16 09 :04; Admin Dose 20 MEQ; Start 06/12/16 at 09:00; Stop 06/12/16 at 09:01; Status DC Potassium Chloride (KCl) 20 meq ONCE ONCE PO Last administered on 06/12/16 12: 06; Admin Dose 20 MEQ; Start 06/12/16 at 11:15; Stop 06/12/16 at 11:16; Status DC Potassium Chloride (KCl) 20 meq ONCE ONCE PO Last administered on 06/12/16t 12: 33; Admin Dose 20 MEQ; Start 06/12/16 at 12:00; Stop 06/12/16 at 12:01; Status DC Rivaroxaban (Xarelto) 15 mg BID PO; Start 06/13/16 at 09:00 Vital Signs / I&O Vital Signs Date Time Temp Pulse Resp B/P Pulse Ox O2 Delivery O2 Flow Rate FiO2 06/13/16 07:21 94 Nasal Cannula 2.00 06/13/16 06:00 94 06/13/16 05:00 87 06/13/16 04:00 98.6 86 18 124/69 95 06/13/16 04:00 89 06/13/16 03:14 89 06/13/16 02:00 93 06/13/16 01:05 91 06/13/16 00:00 97 06/13/16 00:00 98.6 93 18 126/74 95 06/12/16 23:00 96 06/12/16 23:00 101 06/12/16 22:00 90 06/12/16 21:28 Nasal Cannula 2.00 06/12/16 21:00 90 06/12/16 20:00 89 Room Air 06/12/16 20:00 98.6 89 18 139/72 95 06/12/16 20:00 92 06/12/16 19:00 93 06/12/16 18:00 86 06/12/16 17:00 93 06/12/16 16:00 93 06/12/16 15:00 97.6 94 17 143/65 93 06/12/16 15:00 91 06/12/16 14:00 91 06/12/16 13:00 81 06/12/16 12:00 82 06/12/16 11:45 98.8 79 17 143/70 94 06/12/16 11:00 76 06/12/16 11:00 94 Room Air 06/12/16 10:00 84 06/12/16 09:00 101 I/O 06/12/16 06/12/16 06/12/16 06/13/16 06/13/16 06/13/16 07:00 15:00 23:00 07:00 15:00 23:00 Intake Total 530 ml 900 ml 480 ml Output Total 1670 ml 2885 ml 1925 ml Balance -1140 ml -1985 ml -1445 ml Intake Oral 480 ml 600 ml 480 ml IV Total 50 ml 300 ml Output Urine Total 1550 ml 2835 ml 1925 ml Chest Tube Drainage Total 120 ml 50 ml # Bowel Movements 0 0 Physical Exam GENERAL: SKIN: Warm and dry. HEAD: Normocephalic. EYES: No scleral icterus. No injection or drainage. NECK: Supple, trachea midline. No JVD or lymphadenopathy. CARDIOVASCULAR: Regular rate and rhythm 2/6 SM RESPIRATORY: Breath sounds equal bilaterally. No accessory muscle use. GASTROINTESTINAL: Abdomen soft, non-tender, nondistended. MUSCULOSKELETAL: No cyanosis, or edema. BACK: Nontender without obvious deformity. No CVA tenderness. Laboratory Laboratory Tests Test 06/13/16 04:10 Sodium Level 138 MEQ/L Potassium Level 4.6 MEQ/L Chloride Level 102 MEQ/L Carbon Dioxide Level 29.7 MEQ/L Anion Gap 6 MEQ/L Blood Urea Nitrogen 11 MG/DL Creatinine 0.72 MG/DL Estimat Glomerular Filtration 105 ML/MIN Rate Random Glucose 157 MG/DL Calcium Level 8.4 MG/DL Magnesium Level 2.1 MG/DL Assessment and Plan Problem List: (1) Coronary artery disease (2) S/P CABG x 2 (3) Hyperlipemia (4) Hypertension (5) Chronic back pain (6) DVT (deep venous thrombosis) Assessment and Plan s/p CABG cont med therapy call with questions fu in OPD Jn Griffith MD Jun 13, 2016 08:32
[2016-06-13] MEDS: RIVAROXABAN 15 MG TAB PO SCH ×3 (09:00→21:07)
[2016-06-13] MEDS: POLYETHYLENE GLYCOL 17 GM PKG PO SCH (09:21)
[2016-06-13] MEDS: DOCUSATE SODIUM 100 MG CAP PO SCH ×2 (09:24→21:07)
[2016-06-13] MEDS: SODIUM CHLORIDE 0.9% FLUSH 5 ML FLUSH IV FLUSH SCH ×2 (09:24→21:06)
[2016-06-13] MEDS: AMIODARONE 200 MG TAB PO SCH ×2 (09:24→21:07)
[2016-06-13] MEDS: ASPIRIN 81 MG CHEW TAB PO SCH (09:24)
[2016-06-13] MEDS: METOPROLOL TARTRATE 25 MG TAB PO SCH ×3 (09:24→23:31)
[2016-06-13] MEDS: PRAVASTATIN SOD 40 MG TAB PO SCH (09:24)
[2016-06-13] MEDS: MULTIVITAMINS/MINERALS THERAPEUTIC TAB PO SCH (09:24)
--- NOTE | 2016-06-13 09:50 | PD.CAR.PN ---
CVT Progress Note CVT: POD #: 3 Subjective/Hospital Course: 81/ male undergoing ECG for clearance for Left Hip Surgery, found to have abnormal ECG, followed by Heart Cath by Dr Griffith + multi vessel disease, 40% Left main, 30% prox LAD, mid/distal LAD 99%, diagonal 90%, CX 100% EF 45% mild MR PMH: Left Hip pain, CAD, ureteral stenosis, DDD, GERD, chronic back pain , DM US Lower ext revealed + DVT left post tibial vein 06/09 doing well, scheduled for surgery in am will need anticoagulation after surgery for DVT 06/10 1. Urgent Off-pump Coronary Artery Bypass Grafting x 2 with left internal mammary artery (HOLGUIN) to left anterior descending (LAD), reverse saphenous vein graft to D1 2. Right Leg Endoscopic Vein [place] 06/11 extubated post surgery, doing well, BP labile start BB later today , gentle diuresis aggressive pulm toileting chest tube drained 140cc/ 12 hours transfer to stepdown 06/12 eval for possible removal of chest tube later today 120c/ 12 hrs remains in NSR gentle diuresis / lower ext edema and bibasilar crackles pt requesting rehab at discharge 06/13 wean 02 as tolerated cxr noted no PTX continue IS acapella increase BB start xarelto for DVT left leg Objective: GENERAL: up in chair , doing well SKIN: Warm and dry./ prevena to sternum, incision intact and well approximated right leg HEAD: Normocephalic. EYES: No scleral icterus. No injection or drainage. NECK: Supple, trachea midline. No JVD or lymphadenopathy. CARDIOVASCULAR: Regular rate and rhythm without murmurs, gallops, or rubs. RESPIRATORY: Breath sounds equal bilaterally. No accessory muscle use. GASTROINTESTINAL: Abdomen soft, non-tender, nondistended. MUSCULOSKELETAL: No cyanosis, or edema. BACK: Nontender without obvious deformity. No CVA tenderness. Vital Signs Date Time Temp Pulse Resp B/P Pulse Ox O2 Delivery O2 Flow Rate FiO2 06/13/16 07:21 94 Nasal Cannula 2.00 06/13/16 06:00 94 06/13/16 05:00 87 06/13/16 04:00 98.6 86 18 124/69 95 06/13/16 04:00 89 06/13/16 03:14 89 06/13/16 02:00 93 06/13/16 01:05 91 06/13/16 00:00 97 06/13/16 00:00 98.6 93 18 126/74 95 06/12/16 23:00 96 06/12/16 23:00 101 06/12/16 22:00 90 06/12/16 21:28 Nasal Cannula 2.00 06/12/16 21:00 90 06/12/16 20:00 89 Room Air 06/12/16 20:00 98.6 89 18 139/72 95 06/12/16 20:00 92 06/12/16 19:00 93 06/12/16 18:00 86 06/12/16 17:00 93 06/12/16 16:00 93 06/12/16 15:00 97.6 94 17 143/65 93 06/12/16 15:00 91 06/12/16 14:00 91 06/12/16 13:00 81 06/12/16 12:00 82 06/12/16 11:45 98.8 79 17 143/70 94 06/12/16 11:00 76 06/12/16 11:00 94 Room Air 06/12/16 10:00 84 Labs: Laboratory Tests Test 06/13/16 04:10 Sodium Level 138 MEQ/L (136-145) Potassium Level 4.6 MEQ/L (3.5-5.1) Chloride Level 102 MEQ/L (98-107) Carbon Dioxide Level 29.7 MEQ/L (21.0-32.0) Anion Gap 6 MEQ/L (5-15) Blood Urea Nitrogen 11 MG/DL (7-18) Creatinine 0.72 MG/DL (0.60-1.30) Estimat Glomerular Filtration 105 ML/MIN Rate (>89) Random Glucose 157 MG/DL (74-106) Calcium Level 8.4 MG/DL (8.5-10.1) Magnesium Level 2.1 MG/DL (1.5-2.5) Result Diagram: 06/12/16 0522 06/13/16 0410 (1) Coronary artery disease Plan: on ASA, statin , increase BB (2) S/P CABG x 2 Plan: aggressive pulm toileting nebs, ezpap ambulate post cxr removal cxr stable eval for transfer to rehab in am (3) Hyperlipemia Plan: statin (4) Hypertension Plan: stable (5) Chronic back pain Plan: pain control (6) DVT (deep venous thrombosis) Plan: will start Nara Sarmiento Jun 13, 2016 09:50
[2016-06-13] MEDS ORDERED: DEXTROSE 50% IN WATER 50 ML VIAL(D50) IV PUSH PRN (10:00)
[2016-06-13] MEDS ORDERED: FUROSEMIDE 20 MG/2 ML VIAL IV PUSH ONE (10:00)
[2016-06-13] MEDS ORDERED: GLUCAGON 1 MG/ML VIAL OTHER PRN (10:00)
[2016-06-13] MEDS ORDERED: Aspirin Chew PO (11:18)
[2016-06-13] MEDS ORDERED: XARE15TA PO (11:18)
[2016-06-13] MEDS ORDERED: METO25TA3 PO (11:18)
[2016-06-13] MEDS ORDERED: XARE20TA PO (11:18)
[2016-06-13] MEDS ORDERED: DOCU1CAP39 PO (11:18)
[2016-06-13] MEDS ORDERED: AMIO200T PO (11:18)
[2016-06-13] MEDS: PIOGLITAZONE HCL 15 MG TAB PO SCH (12:26)
--- NOTE | 2016-06-13 13:24 | HHI.DS ---
Discharge Summary Admission Date Jun 06, 2016 at 12:57 Discharge Date: Jun 14, 2016 Admitting Diagnosis abnormal ECG, CAD (1) Coronary artery disease Diagnosis: Principal (2) Hyperlipemia Diagnosis: Principal (3) DVT (deep venous thrombosis) Diagnosis: Principal (4) Hypertension Diagnosis: Principal (5) Chronic back pain Diagnosis: Principal (6) S/P CABG x 2 Diagnosis: Secondary Procedures 1. Urgent Off-pump Coronary Artery Bypass Grafting x 2 with left internal mammary artery (HOLGUIN) to left anterior descending (LAD), reverse saphenous vein graft to D1 2. Right Leg Endoscopic Vein [place] 3. Intraoperative Vein Mapping. Brief History 81/ male undergoing ECG for clearance for Left Hip Surgery, found to have abnormal ECG, followed by Heart Cath by Dr Griffith + multi vessel disease, 40% Left main, 30% prox LAD, mid/distal LAD 99%, diagonal 90%, CX 100% EF 45% mild MR PMH: Left Hip pain, CAD, ureteral stenosis, DDD, GERD, chronic back pain , DM US Lower ext revealed + DVT left post tibial vein CBC/BMP: 06/12/16 0522 06/13/16 0410 Significant Findings Laboratory Tests Test 06/11/16 06/12/16 06/13/16 04:39 05:22 04:10 Red Blood Count 3.21 MIL/MM3 3.32 MIL/MM3 (4.50-5.90) (4.50-5.90) Hemoglobin 9.5 GM/DL 9.9 GM/DL (13.0-17.0) (13.0-17.0) Hematocrit 27.9 % 29.0 % (39.0-51.0) (39.0-51.0) Potassium Level 3.3 MEQ/L (3.5-5.1) Random Glucose 147 MG/DL 120 MG/DL 157 MG/DL (74-106) (74-106) (74-106) Calcium Level 8.1 MG/DL 8.4 MG/DL 8.4 MG/DL (8.5-10.1) (8.5-10.1) (8.5-10.1) Neutrophils (%) (Auto) 80.3 % (16.0-70.0) Lymphocytes (%) (Auto) 6.2 % (9.0-44.0) Monocytes (%) (Auto) 11.8 % (0.0-8.0) Lymphocytes # (Auto) 0.5 TH/MM3 (1.0-4.8) Monocytes # (Auto) 1.0 TH/MM3 (0-0.9) Imaging Last Impressions Chest X-Ray 06/13/16 0600 Signed Impressions: Service Date/Time: Monday, June 13, 2016 04:46 - CONCLUSION: 1. There is no evidence of pneumothorax. 2. Bilateral lower lobe atelectasis versus pneumonia. Oseas Jolley MD Lower Extremity Ultrasound 06/06/16 0000 Signed Impressions: Service Date/Time: Monday, June 06, 2016 14:47 - CONCLUSION: Normal examination for a patient of this age. Sonu Renteria MD Chest CT 06/06/16 0000 Signed Impressions: Service Date/Time: Tuesday, June 07, 2016 21:45 - CONCLUSION: No acute cardiopulmonary process. Atherosclerotic cardiovascular disease inclusive of compensated cardiomegaly and extensive calcifications in the left coronary artery occlusive vein, anterior descending, and circumflex. Jensen Amaya MD Carotid Artery Ultrasound 06/06/16 0000 Signed Impressions: Service Date/Time: Monday, June 06, 2016 14:13 - CONCLUSION: 1. There is [id number] atherosclerotic disease in the carotid arteries bilaterally, predominantly around the carotid bifurcations. No hemodynamically significant stenosis. Vertebral artery flow antegrade bilaterally. Sonu Renteria MD PE at Discharge GENERAL: SKIN: Warm and dry./ prevena dressing to chest / incision intact and well approximated to right leg HEAD: Normocephalic. EYES: No scleral icterus. No injection or drainage. NECK: Supple, trachea midline. No JVD or lymphadenopathy. CARDIOVASCULAR: Regular rate and rhythm without murmurs, gallops, or rubs. RESPIRATORY: Breath sounds equal bilaterally. No accessory muscle use. GASTROINTESTINAL: Abdomen soft, non-tender, nondistended. MUSCULOSKELETAL: No cyanosis, or edema. BACK: Nontender without obvious deformity. No CVA tenderness. Hospital Course 06/09 doing well, scheduled for surgery in am will need anticoagulation after surgery for DVT 06/10 1. Urgent Off-pump Coronary Artery Bypass Grafting x 2 with left internal mammary artery (HOLGUIN) to left anterior descending (LAD), reverse saphenous vein graft to D1 2. Right Leg Endoscopic Vein [place] 06/11 extubated post surgery, doing well, BP labile start BB later today , gentle diuresis aggressive pulm toileting chest tube drained 140cc/ 12 hours transfer to stepdown 06/12 eval for possible removal of chest tube later today 120c/ 12 hrs remains in NSR gentle diuresis / lower ext edema and bibasilar crackles pt requesting rehab at discharge 06/13 wean 02 as tolerated cxr noted no PTX continue IS acapella increase BB start xarelto for DVT left leg Pt Condition on Discharge: Good Discharge Disposition: Discharge to SNF Discharge Instructions DIET: Follow Instructions for: Heart Healthy Diet, Diabetic Diet Activities you can perform: Full Weight Bearing, Shower Only-No Bath Activities to avoid: Lifting/Bending, Strenuous Activity, Driving Additional Activity Instructio: no lifting > 10 lbs or gallon of milk Follow up Referrals: Cardiology - 4 Weeks with Jn Griffith MD Cardiology with Jn Griffith MD PCP Follow-up - 2 Weeks with Óscar Valdez MD PCP Follow-up with Óscar Valdez MD Surgical Surgical with Darien Montejo MD New Medications: Rivaroxaban (Xarelto) 20 Mg Tab 20 MG PO DAILY start on 07/05, after completing 21 days of 15mg bid Blood Clot Prevention #30 Ref 1 TAB Amiodarone (Amiodarone) 200 Mg Tab 200 MG PO Q12HR heart rhythm #28 Ref 0 TAB Docusate Sodium (Dok) 100 Mg Cap 100 MG PO BID Constipation #60 Ref 0 CAP Metoprolol Tartrate (Metoprolol Tartrate) 25 Mg Tab 25 MG PO Q8H Blood Pressure Management #90 Ref 2 TAB Rivaroxaban (Xarelto) 15 Mg Tab 15 MG PO BID x 21 days , stop date 07/04, then start xarelto 20mg daily starting dvt #42 Ref 0 TAB ([Aspirin Chew]) 81 MG CHEW 81 MG PO DAILY Blood Clot Prevention #100 Ref 1 TAB.CHEW Continued Medications: Ascorbic Acid (Vitamin C) 100 Mg Chew 100 MG CHEW DAILY Nutritional Supplement Ref 0 TAB B-Complex Vitamins (Vitamin B Complex) 1 Tab Unknown Dose PO DAILY Ydzkskcmbxf-Orduuuivdky-Fdb C- (Glucosamine Chondroitin) 1 Cap Cap 750-800 MG PO DAILY [place]-3 Fatty Acids (Fish Oil) 1,000 Mg Cap 1000 MG PO DAILY Pioglitazone (Pioglitazone) 15 Mg Tab 15 MG PO DAILY Blood Sugar Management #30 Ref 0 TAB Pravastatin (Pravastatin) 40 Mg Tab 40 MG PO DAILY Cholesterol Management #30 Ref 0 TAB Tamsulosin (Tamsulosin) 0.4 Mg Cap 0.4 MG PO HS Manage Prostate Problems #30 Ref 0 CAP Discontinued Medications: Amlodipine (Amlodipine) 10 Mg Tab 10 MG PO DAILY Blood Pressure Management #30 Ref 0 TAB Lisinopril (Lisinopril) 40 Mg Tab 40 MG PO DAILY Blood Pressure Management #30 Ref 0 TAB Potassium Gluconate (Potassium Gluconate) 595 Mg Tab 1190 MG PO DAILY Vitamin E (E-400) 400 Unit Cap 400 PO DAILY Nara Ruiz Jun 13, 2016 13:24
[2016-06-13] MEDS: TAMSULOSIN HCL 0.4 MG CAP PO SCH (21:07)
[2016-06-14] VITALS (18 sets, daily range): BP systolic 102–119; BP diastolic 60–66; PULSE 73–88; RESP 18–20; TEMP 98.3–98.9; O2SAT 91–97
[2016-06-14] MEDS: PANTOPRAZOLE SOD 40 MG DELAYED RELEASE TAB PO SCH (05:30)
[2016-06-14] MEDS: INSULIN ASPART SUPPLEMENTAL SCALE SQ SCH ×3 (06:05→16:00)
--- NOTE | 2016-06-14 08:54 | PD.CAR.PN ---
CVT Progress Note Subjective/Hospital Course: 81/ male undergoing ECG for clearance for Left Hip Surgery, found to have abnormal ECG, followed by Heart Cath by Dr Griffith + multi vessel disease, 40% Left main, 30% prox LAD, mid/distal LAD 99%, diagonal 90%, CX 100% EF 45% mild MR PMH: Left Hip pain, CAD, ureteral stenosis, DDD, GERD, chronic back pain , DM US Lower ext revealed + DVT left post tibial vein 06/09 doing well, scheduled for surgery in am will need anticoagulation after surgery for DVT 06/10 1. Urgent Off-pump Coronary Artery Bypass Grafting x 2 with left internal mammary artery (HOLGUIN) to left anterior descending (LAD), reverse saphenous vein graft to D1 2. Right Leg Endoscopic Vein [place] 06/11 extubated post surgery, doing well, BP labile start BB later today , gentle diuresis aggressive pulm toileting chest tube drained 140cc/ 12 hours transfer to stepdown 06/12 eval for possible removal of chest tube later today 120c/ 12 hrs remains in NSR gentle diuresis / lower ext edema and bibasilar crackles pt requesting rehab at discharge 06/13 wean 02 as tolerated cxr noted no PTX continue IS acapella increase BB start xarelto for DVT left leg 06/14 Discharge to rehab today Objective: Vital Signs Date Time Temp Pulse Resp B/P Pulse Ox O2 Delivery O2 Flow Rate FiO2 06/14/16 08:00 81 06/14/16 07:38 96 21 06/14/16 07:00 91 Room Air 06/14/16 07:00 82 06/14/16 07:00 98.7 82 18 102/60 91 06/14/16 06:00 79 06/14/16 05:00 77 06/14/16 04:00 79 06/14/16 03:21 98.5 88 19 119/63 92 06/14/16 03:00 73 06/14/16 02:00 77 06/14/16 01:00 75 06/13/16 23:35 97.8 82 19 119/64 93 06/13/16 23:00 89 06/13/16 22:00 89 06/13/16 21:00 85 06/13/16 20:49 93 06/13/16 20:45 Room Air 06/13/16 20:45 97.5 85 20 117/60 93 06/13/16 20:45 90 06/13/16 18:12 82 06/13/16 17:00 93 06/13/16 16:00 91 06/13/16 15:31 98.1 96 17 133/77 95 06/13/16 15:00 95 06/13/16 14:00 91 06/13/16 13:00 97 06/13/16 12:00 88 06/13/16 11:00 92 06/13/16 11:00 97.9 92 17 105/62 92 06/13/16 10:00 97 06/13/16 09:00 98 Result Diagram: 06/12/16 0522 06/13/16 0410 (1) Coronary artery disease Plan: on ASA, statin , increase BB (2) S/P CABG x 2 Plan: aggressive pulm toileting nebs, ezpap ambulate post cxr removal cxr stable eval for transfer to rehab in am (3) Hyperlipemia Plan: statin (4) Hypertension Plan: stable (5) Chronic back pain Plan: pain control (6) DVT (deep venous thrombosis) Plan: will start Darien Marquez MD Jun 14, 2016 08:54
[2016-06-14] MEDS: POLYETHYLENE GLYCOL 17 GM PKG PO SCH (10:13)
[2016-06-14] MEDS: PRAVASTATIN SOD 40 MG TAB PO SCH (10:13)
[2016-06-14] MEDS: AMIODARONE 200 MG TAB PO SCH (10:13)
[2016-06-14] MEDS: SODIUM CHLORIDE 0.9% FLUSH 5 ML FLUSH IV FLUSH SCH (10:13)
[2016-06-14] MEDS: RIVAROXABAN 15 MG TAB PO SCH (10:13)
[2016-06-14] MEDS: DOCUSATE SODIUM 100 MG CAP PO SCH (10:13)
[2016-06-14] MEDS: METOPROLOL TARTRATE 25 MG TAB PO SCH ×2 (10:13→17:20)
[2016-06-14] MEDS: ASPIRIN 81 MG CHEW TAB PO SCH (10:13)
[2016-06-14] MEDS: MULTIVITAMINS/MINERALS THERAPEUTIC TAB PO SCH (10:13)
[2016-06-14] MEDS: PIOGLITAZONE HCL 15 MG TAB PO SCH (10:14)
[2016-06-14] MEDS ORDERED: NORC5TAB PO (12:40)
== END 2016-06-14 17:40 | DRG 234 ==
LOC: HDOC 07:35 → HDIC 07:36 → HCIS 12:57 → HDOC 14:27 → HCIS 06-10 09:29 → HCVR 06-10 13:05 → HCPC 06-11 15:07 → UNDODISIN 06-14 17:40
PROVIDERS: ADMIT Thoracic Surgery (Cardiothoracic Vascular Surgery); ATTEND Thoracic Surgery (Cardiothoracic Vascular Surgery)
PROC: 4A023N7 Measurement of Cardiac Sampling and Pressure, Left Heart, Percutaneous Approach (ICD-10-PCS; 2016-06-06)
PROC: B2111ZZ Fluoroscopy of Multiple Coronary Arteries using Low Osmolar Contrast (ICD-10-PCS; 2016-06-06)
PROC: 021009W Bypass Coronary Artery, One Artery from Aorta with Autologous Venous Tissue, Open Approach (ICD-10-PCS; 2016-06-10)
PROC: 06BP4ZZ Excision of Right Saphenous Vein, Percutaneous Endoscopic Approach (ICD-10-PCS; 2016-06-10)
PROC: 02100Z9 Bypass Coronary Artery, One Artery from Left Internal Mammary, Open Approach (ICD-10-PCS; principal; 2016-06-10 09:09)
DX: I25.110 Atherosclerotic heart disease of native coronary artery with unstable angina pectoris (principal); I25.82 Chronic total occlusion of coronary artery; I82.442 Acute embolism and thrombosis of left tibial vein; E11.9 Type 2 diabetes mellitus without complications; I10 Essential (primary) hypertension; E78.5 Hyperlipidemia, unspecified; K21.9 Gastro-esophageal reflux disease without esophagitis; G89.29 Other chronic pain; M54.5 Low back pain; M25.552 Pain in left hip; Z85.828 Personal history of other malignant neoplasm of skin; Z79.84 Long term (current) use of oral hypoglycemic drugs; Z87.891 Personal history of nicotine dependence
CPT/HCPCS: 71010; 71020; 71250; 76937; 80048; 80053; 80061; 81001; 82550; 82948; 83036; 83735; 85002; 85014; 85025; 85027; 85347; 85610; 85730; 86850; 86900; 86901; 86920; 87641; 93005; 93454; 93880; 93970; 93998; 94002; 94010; 94150; 94640; 94664; 94667; 94668; C1751; C1768; C1769; C1887; C1893; J0131; J0690; J1644; J1815; J1885; J1940; J2250; J2370; J2405; J2440; J2720; J3010; J3370; J3475; J3480; J7120; P9045; Q9967